=== PATIENT | male | born 1950 | race Asian ===

== ENCOUNTER 2017-05-04 20:41 | Inpatient (IN) | payer BC, OTHER ==
[~2017-05-04] VITALS: Ht 172.7 cm; Wt 73.9 kg
[~2017-05-04 20:41] MED LIST: AMLO5TAB4 PO; ASPI-495 PO; ATEN50TA PO; LISI40TA4 PO; SIMV20TA6 PO
--- NOTE | 2017-05-04 20:52 | NUR ---
BB SELF; RIGHT SHOULDER PAIN X 3 DAYS AFTER CARRYING A BAG OF GROCERIES. DISTAL CMS INTACT. PAIN IS WORSE WITH MOVEMENT. IMMOBILIZED AREA. VSS. NONDIAPHORETIC. NAD NOTED. COMFORT MEASURES RENDERED. DR NAPOLES AT BEDSIDE TO CODY. Addendum: 05/04/17 at 2102 by JUDITH SHOULDER PAIN THAT STARTED X4-5 WEEKS AGO, HOWEVER 2-3 HOURS DOCUMENT IMAGING SPECIALIST, PATIENT FELT INCREASED PAIN AFTER "TWISTING MY ARM WHILE TRYING TO CATCH MY CREDIT CARD FROM FALLING TO THE GROUND."
--- NOTE | 2017-05-04 20:55 | NUR ---
XR TECH AT BEDSIDE.
--- NOTE | 2017-05-04 20:57 | NUR ---
MEDICATED PATIENT ORDERED BY DR NAPOLES.
--- NOTE | 2017-05-04 21:50 | NUR ---
CALLED [facility] [phone]
--- NOTE | 2017-05-04 21:55 | NUR ---
PER [place] BISQUE CLEANER, PT NO LONGER HAS [place] ELIGIBILITY
[2017-05-04 22:10] LABS: HEMATOCRIT 30 % (39-51); HEMOGLOBIN 10.2 g/dL (13.5-17.5); LYMPHOCYTES # (AUTO) 0.4 /CMM (0.8-4.8); LYMPHOCYTES % (AUTO) 6.2 % (20.0-44.0); MEAN CORPUSCULAR HEMOGLOBIN 31 PG (26.0-33.0); MEAN CORPUSCULAR HGB CONC 34 g/dl (31.0-36.0); MEAN CORPUSCULAR VOLUME 93 fL (80-96); MONOCYTES # (AUTO) 0.2 /CMM (0.1-1.30); MONOCYTES % (AUTO) 3.7 % (2.0-12.0); NEUTROPHILS # (AUTO) 5.6 /CMM (1.8-8.9); NEUTROPHILS % (AUTO) 90.1 % (43.0-81.0); PLATELET COUNT (AUTO) 163 /CMM (150-450); RDW COEFFICIENT OF VARIATION 13.7 (11.5-15.0); RED BLOOD CELL COUNT(AUTO) 3.25 MIL/uL (4.5-6.0); WHITE BLOOD COUNT (AUTO) 6.2 K/uL (4.3-11.0)
[2017-05-04 22:17] LABS: CALCIUM, SERUM 9.2 mg/dL (8.5-10.1); CREATININE 0.9 mg/dL (0.6-1.3); POTASSIUM 4.4 mmol/L (3.5-5.1)
[2017-05-04 22:24] LABS: BILIRUBIN,TOTAL 0.5 mg/dL (0.2-1.0)
[2017-05-04 22:25] LABS: ALBUMIN 4.3 g/dL (3.4-5.0); BILIRUBIN,DIRECT 0.5 mg/dL (0.0-0.2); TOTAL PROTEIN, SERUM 7.3 g/dL (6.4-8.2)
[2017-05-04 22:27] LABS: INR 0.91 (0.87-1.13); PROTHROMBIN TIME 9.7 SECS (9.5-12.7)
--- NOTE | 2017-05-04 22:40 | NUR ---
REPORT GIVEN TO MAGO CHINO FOR ADMISSION AND KALIN.
--- NOTE | 2017-05-04 23:13 | NUR ---
DR JJ NIELSEN AT BEDSIDE TO EVAL.
--- NOTE | 2017-05-04 23:43 | NUR ---
PATIENT UNABLE TO PROVIDE URINE AT THIS TIME. TRANSFERRED PATIENT TO [facility] FLOOR, NO INCIDENT NOTED. VSS. FAMILY AT BEDSIDE.
[2017-05-05] VITALS (7 sets, daily range): BP systolic 112–147; BP diastolic 65–82
--- NOTE | 2017-05-05 02:22 | NUR ---
RN MS ADMITTING NOTES RECEIVED PT VIA TIMOTEO FROM [place] AT 05/04/17 4205 ACLS PROTOCOL, A/O X 4, PATIENT NOT IN RESPIRATORY/ ACUTE DISTRESS, PATIENT NO COMPLAINS OF PAIN AT THIS TIME. LFA G 20 IV SITE INTACT NO S/S OF INFILTRATION. R SHOULDER SLING INTACT, PATIENT HAS CPAP ORDERED, RT WAS NOTIFIED. HEAD TO TOE ASSESSMENT IS DONE SKIN IS INTACT. CALL LIGHT WITHIN REACH. SAFETY MEASURES IN PLACE, ON LOW BED, WILL CONTINUE TO MONITOR PT.
[2017-05-05 05:02] LABS: APPEARANCE,URINE CLOUDY (CLEAR); BILIRUBIN,URINE NEGATIVE (NEGATIVE); BLOOD, URINE 1+ Ery/uL (NEGATIVE); COLOR,URINE YELLOW (YELLOW); KETONES,URINE NEGATIVE (NEGATIVE); LEUKOCYTE ESTERASE ,URINE NEGATIVE (NEGATIVE); NITRITE, URINE NEGATIVE (NEGATIVE); PROTEIN,URINE 2+ mg/dl (NEGATIVE); UGLUCOSE NEGATIVE (NEGATIVE); UROBILINOGEN,URINE 0.2 EU/dL (0.2)
[2017-05-05 05:15] LABS: BACTERIA,URINE None seen /HPF (None Seen); SQUAMOUS EPITHELIAL CELL,UR Rare /HPF (None Seen); WBC,URINE 0-2 /HPF (0-3)
[2017-05-05 05:16] LABS: URINE AMORPHOUS URATE Moderate /HPF (None Seen)
--- NOTE | 2017-05-05 06:34 | NUR ---
MS RN CLOSING NOTES PATIENT COMFORTABLY ASLEEP AND EASILY AWAKEN, HEAD OF BED ELEVATED FOR BETTER LUNG EXPANSION AND GOOD CIRCULATION. TOLERATING ROOM AIR 02 SAT 98% PATIENT REMOVE CPAP. CPAP AT [facility] ONLY. LFA 20G IV SITE NO S/S OF INFILTRATED PATENT AND FLUSHED, RESPIRATIONS EVEN AND UNLABORED, FREQUENT VISUAL CHECK DONE FOR SAFETY EVERY 2 HOURS. NURSING CARE RENDERED, NEEDS ATTENDED AND ANTICIPATED, KEPT CLEAN AND DRY AND COMFORTABLE, GOOD SKIN CARE PROVIDED. OFFLOAD AT ALL TIMES. SAFE HAZARD FREE ENVIRONMENT PROVIDED. CALL LIGHT WITHIN EASY TO REACH, ON LOW BED AT ALL TIMES TO ENSURE SAFETY, WILL ENDORSE TO THE NEXT SHIFT CONTINUE PLAN OF CARE
[2017-05-05 07:01] LABS: BASOPHILS % (AUTO) 0.2 % (0.0-2.0); HEMATOCRIT 27 % (39-51); HEMOGLOBIN 9.4 g/dL (13.5-17.5); LYMPHOCYTES # (AUTO) 0.6 /CMM (0.8-4.8); LYMPHOCYTES % (AUTO) 8.5 % (20.0-44.0); MEAN CORPUSCULAR HEMOGLOBIN 32 PG (26.0-33.0); MEAN CORPUSCULAR HGB CONC 34 g/dl (31.0-36.0); MEAN CORPUSCULAR VOLUME 93 fL (80-96); MONOCYTES # (AUTO) 0.7 /CMM (0.1-1.30); MONOCYTES % (AUTO) 9.3 % (2.0-12.0); NEUTROPHILS # (AUTO) 6.1 /CMM (1.8-8.9); PLATELET COUNT (AUTO) 147 /CMM (150-450); RDW COEFFICIENT OF VARIATION 13.2 (11.5-15.0); RED BLOOD CELL COUNT(AUTO) 2.94 MIL/uL (4.5-6.0); WHITE BLOOD COUNT (AUTO) 7.4 K/uL (4.3-11.0)
--- NOTE | 2017-05-05 07:10 | NUR ---
MS RN OPENING NOTE RECEIVED REPORT ON PATIENT AT THE BEDSIDE. PATIENT IS SLEEPING IN BED COMFORTABLY. CHEST IS RISING EQUALLY, BILATERALLY. CPAP IN PLACE. NO OBSERVABLE SIGNS OF DISTRESS. PATIENT'S BED IS LOCKED, IN THE LOWEST POSITION, SIDE RAILS UP X 2, BED ALARM ON. CALL LIGHT/ALL NEEDS WITHIN REACH. WILL RETURN TO REASSESS AFTER MORNING REPORT.
[2017-05-05 07:33] LABS: CALCIUM, SERUM 8.8 mg/dL (8.5-10.1); CREATININE 0.8 mg/dL (0.6-1.3); PHOSPHORUS 4.9 mg/dL (2.5-4.9); POTASSIUM 4.6 mmol/L (3.5-5.1)
[2017-05-05 07:37] LABS: FREE PSA 0.09 ng/mL (0.00-45); PROSTATE SPECIFIC ANTIGEN SCR 0.5 ng/mL (0.00-4.00)
--- NOTE | 2017-05-05 08:46 | NUR ---
MS RN NOTE PATIENT REFUSED TAKING SIMVASTATIN AT THIS TIME. STATED HE TAKES IT AT NIGHT AT HOME.
--- NOTE | 2017-05-05 09:01 | NUR ---
MS RN NOTES RECEIVED CALL FROM COURY FROM [facility]. PER COURY ORDER NPO MIDNIGHT FOR PATIENT AND OBTAIN PROCEDURE CONSENT FOR ORIF RIGHT FX FEMORAL. MD MCADAMS AWARE OF LOW K, PHOS, AND MAG; NO NEW ORDERS FROM DR MCADAMS AT THIS TIME.
[2017-05-05 09:41] LABS: THYROID STIMULATING HORMONE 1.769 uIU/mL (0.358-3.74)
--- NOTE | 2017-05-05 10:10 | NUR ---
ORANGE PEEL OPERATOR NOTE PATIENT STATED HE COULD NOT SIGH THE CONSENT FOR NUCLEAR MEDICINE BONE SCAN. GRANDDAUGHTER SIGNED AT THE BEDSIDE AT PATIENT'S REQUEST.
--- NOTE | 2017-05-05 12:25 | NUR ---
MS RN STUART YOUNG FROM NUCLEAR MEDICINE IS WHEELING THE PATIENT DOWN FOR THE THE TEST. PATIENT IS LEAVING THE UNIT IN A STABLE CONDITION.
--- NOTE | 2017-05-05 16:41 | NUR ---
MS RN NOTE OT AT THE BEDSIDE FOR EVAL
--- NOTE | 2017-05-05 19:00 | NUR ---
RN MS NOTES RECEIVED PT IN BED, A/O X 4, PATIENT NOT IN ACUTE/RESPIRATORY DISTRESS, IV SITE INTACT NO S/S OF INFILTRATION. CALL LIGHT WITHIN REACH. SAFETY MEASURES IN PLACE, ON LOW BED, WILL CONTINUE TO MONITOR PT.
--- NOTE | 2017-05-05 19:34 | NUR ---
MS RN CLOSING NOTE PATIENT IS RESTING IN THE BED COMFORTABLY. FAMILY AT THE BEDSIDE. BED IS LOCKED, IN LOWEST POSITION, SIDE RAILS UP X 2, ALL NEEDS ATTENDED. DUE MEDS GIVEN. WILL ENDORSE TO THE NEXT SHIFT FOR KALIN
[2017-05-06] VITALS (24 sets, daily range): BP systolic 90–124; BP diastolic 58–80
[2017-05-06 06:32] LABS: BASOPHILS % (AUTO) 0.3 % (0.0-2.0); EOSINOPHILS % (AUTO) 0.2 % (0.0-6.0); HEMATOCRIT 28 % (39-51); HEMOGLOBIN 9.6 g/dL (13.5-17.5); LYMPHOCYTES # (AUTO) 0.9 /CMM (0.8-4.8); LYMPHOCYTES % (AUTO) 15.4 % (20.0-44.0); MEAN CORPUSCULAR HEMOGLOBIN 32 PG (26.0-33.0); MEAN CORPUSCULAR HGB CONC 34 g/dl (31.0-36.0); MEAN CORPUSCULAR VOLUME 92 fL (80-96); MONOCYTES # (AUTO) 0.5 /CMM (0.1-1.30); MONOCYTES % (AUTO) 9.1 % (2.0-12.0); NEUTROPHILS # (AUTO) 4.4 /CMM (1.8-8.9); PLATELET COUNT (AUTO) 134 /CMM (150-450); RDW COEFFICIENT OF VARIATION 13.5 (11.5-15.0); RED BLOOD CELL COUNT(AUTO) 3.02 MIL/uL (4.5-6.0); WHITE BLOOD COUNT (AUTO) 5.8 K/uL (4.3-11.0)
--- NOTE | 2017-05-06 06:47 | NUR ---
MS RN CLOSING NOTES PATIENT TRANSPORTED TO [facility] AT 0633 AM PT FULLY AWAKE AND NOT IN ACUTE/RESPIRATORY DISTRESS, FAMILY AT BEDSIDE, REMOVED CPAP. WITH GOOD 02 LEVELS 99% R.A RESPIRATIONS EVEN AND UNLABORED, FREQUENT VISUAL CHECK WAS DONE FOR SAFETY EVERY 2 HOURS. NURSING CARE RENDERED, NEEDS ATTENDED AND ANTICIPATED, PT WAS KEPT CLEAN AND DRY AND COMFORTABLE, GOOD SKIN CARE PROVIDED. OFFLOADED AT ALL TIMES. SAFE HAZARD FREE ENVIRONMENT PROVIDED. WILL ENDORSE TO THE NEXT SHIFT CONTINUE PLAN OF CARE
[2017-05-06 07:02] LABS: ALBUMIN 3.6 g/dL (3.4-5.0); BILIRUBIN,TOTAL 0.7 mg/dL (0.2-1.0); CALCIUM, SERUM 8.2 mg/dL (8.5-10.1); CREATININE 0.9 mg/dL (0.6-1.3); MAGNESIUM 1.7 mg/dL (1.8-2.4); PHOSPHORUS 2.9 mg/dL (2.5-4.9); POTASSIUM 4.1 mmol/L (3.5-5.1); TOTAL PROTEIN, SERUM 6.2 g/dL (6.4-8.2)
[2017-05-06 07:08] LABS: THYROID STIMULATING HORMONE 2.179 uIU/mL (0.358-3.74)
--- NOTE | 2017-05-06 07:45 | NUR ---
COUTURIERE; ADMIT RECEIVED PT FROM OR. PT WAS SCHEDULED FOR RIGHT HUMERUS FX REPAIR. PT UNABLE TO HAVE SURGERY DUE TO PTS SPIKE IN FEVER. PT IS AWAKE BUT LETHARGIC, HOT TO TOUCH. TEMP TAKEN 102.2, COOLING MEASURES APPLIED WILL REVIEW ORDERS. DU CATH PLACED USING ASEPTIC TECHNIQUE. URINE CULTURE SEND. ACEVEDO CULTURES ORDERED. ORIENTED PT TO ROOM CALL LIGHT WITH IN REACH. BED SET TO LOW POSITION
--- NOTE | 2017-05-06 09:28 | NUR ---
MADE AWARE PT. TO GO FROM OR TO ICU-BELONGINGS PACKED UP AND SENT.
--- NOTE | 2017-05-06 10:30 | NUR ---
DEPARTMENT CLINICIAN; CARDIO NOTED PT HEART RATE CHANGE FROM SINUS TACHY TO AFIB. DR. GANDHI MADE AWARE. EKG DONE SHOWING AFIB. NO NEW ORDERS GIVEN. TO CONTINUE TO MONITOR HEART RATE AND IF IT BECOMES UNCONTROLLED TO NOTIFY HIM. WILL CONTINUE TO MONITOR CLOSELY.
--- NOTE | 2017-05-06 19:30 | NUR ---
ANATOMY AND PHYSIOLOGY INSTRUCTOR INITIAL NOTE RECEIVED REPORT FROM ORLANDO CHINO. PT IN BED SLEEPING BUT EASILY AROUSABLE. ON 2L NC. LUNG SOUNDS CLEAR AT UPPER BASES AND DIMINISHED AT LOWER BASES. BOWEL SOUNDS PRESENT. DU INTACT AND DRAINING YELLOW URINE, CURRENTLY COLLECTING A 24HR SPECIMEN- ON ICE. PULSES PRESENT. PT IS WARM TO TOUCH WITH AT ORAL TEMP AT 97.6 BUT AXILLARY TEMP 100.2. ICE PACKS APPLIED FOR FEVER. RIGHT ARM WARMER THAN LEFT, DR NIELSEN AWARE. BED IN LOW LOCKED POSITION. WILL CONTINUE TO MONITOR.
--- NOTE | 2017-05-06 21:00 | NUR ---
FRONT OFFICE DEVELOPER PT TEMP REMAINS ELEVATED AT 101.[address] NIELSEN AT BEDSIDE, PATIENT NOT BREATHING WELL WITH CPAP, ORDERS RECEIVED TO START ON BIPAP. TYLENOL ADMINISTERED. ORDERS RECEIVED TO START ABX AND RAPID INFLUENZA. WILL CARRY OUT ORDERS. WILL CONTINUE TO MONITOR.
--- NOTE | 2017-05-06 22:00 | NUR ---
GASOLINE PUMP MECHANIC TEMP RE CHECKED FROM TEMPORAL ARTERY 99.3. WILL CONTINUE TO MONITOR
[2017-05-07] VITALS (29 sets, daily range): BP systolic 96–156; BP diastolic 56–85
--- NOTE | 2017-05-07 01:35 | NUR ---
DAY CARE PROVIDER PT HR CONVERTED FROM UNCONTROLLED AFIB 115 TO SR HR 83
[2017-05-07 05:08] LABS: BASOPHILS % (AUTO) 0.3 % (0.0-2.0); EOSINOPHILS % (AUTO) 0.1 % (0.0-6.0); HEMATOCRIT 29 % (39-51); HEMOGLOBIN 9.9 g/dL (13.5-17.5); LYMPHOCYTES # (AUTO) 0.7 /CMM (0.8-4.8); LYMPHOCYTES % (AUTO) 12.2 % (20.0-44.0); MEAN CORPUSCULAR HEMOGLOBIN 32 PG (26.0-33.0); MEAN CORPUSCULAR HGB CONC 34 g/dl (31.0-36.0); MEAN CORPUSCULAR VOLUME 94 fL (80-96); MONOCYTES # (AUTO) 0.6 /CMM (0.1-1.30); MONOCYTES % (AUTO) 9.4 % (2.0-12.0); NEUTROPHILS # (AUTO) 4.6 /CMM (1.8-8.9); PLATELET COUNT (AUTO) 129 /CMM (150-450); RDW COEFFICIENT OF VARIATION 13.3 (11.5-15.0); RED BLOOD CELL COUNT(AUTO) 3.11 MIL/uL (4.5-6.0); WHITE BLOOD COUNT (AUTO) 5.9 K/uL (4.3-11.0)
[2017-05-07 05:26] LABS: CALCIUM, SERUM 8.2 mg/dL (8.5-10.1); CREATININE 0.8 mg/dL (0.6-1.3); MAGNESIUM 2.2 mg/dL (1.8-2.4); POTASSIUM 3.9 mmol/L (3.5-5.1)
[2017-05-07 08:07] LABS: IMMUNOGLOBULIN A, SERUM 16 mg/dL (61-437); IMMUNOGLOBULIN G, SERUM 396 mg/dL (700-1600); IMMUNOGLOBULIN M, SERUM 12 mg/dL (20-172)
--- NOTE | 2017-05-07 08:33 | NUR ---
RT PATIENT REMOVED FROM BIPAP AND PLACED ON 3L N/C. RN ORLANDO NOTIFIED
--- NOTE | 2017-05-07 09:00 | NUR ---
CHIEF RECORDIST; Resp noted pt having apneic episodes and saturations decreasing to to mid 80's. pt need constant stimulation to keep awake. Jodee Bella RT made aware and place pt back on bipap settings.
--- NOTE | 2017-05-07 10:00 | NUR ---
SWEEPER BRUSH MAKER MACHINE: MEDICATION Unable to give 0900 scheduled medication due to pt too lethargic and high risk for aspiration. pt continues on bipap. will continue to monitor B/P. and alertness.
--- NOTE | 2017-05-07 10:10 | NUR ---
RT ABG RESULTS DID NOT TRANSFER OVER TO [facility]. DOWNTIME PROCEDURE DONE. PH: 7.36, CO2: 41.5, PO2: 131.8, HCO3: 23.2
--- NOTE | 2017-05-07 10:26 | NUR ---
PLANE TABLEMAN; TEMP noted pt warm to touch. pt continues to be lethargic but arousable. temp taken reading 102. Cooling measures applied. dr. moon notified. discussed that pt coninutes on bipap abg results given. Orders given for blood cultures and to keep pt in ICU.
--- NOTE | 2017-05-07 14:30 | NUR ---
MULTIPLE D/W DR AMIN, RADIOLOGIST, AND GRANDSON AND JULIO NIELSEN REGARDING DIAGNOSTIC LP. PT JUST NOW OFF OF BIPAP AND LAST BABY ASA YESTERDAY AM. WILL GET CT SCAN OF HEAD. FAMILY AGREES TO LP. JULIO NIELSEN WILL DO LP THIS PM. WILL TRANSFER TO NEGATIVE FLOW ROOM AND INSTRUCT FAMILY IN ISOLATION N 95. ID CONSULT TO BROADEN ANTIBIOTICS TO COVER POSSIBLE MENINGITIS
--- NOTE | 2017-05-07 18:10 | NUR ---
BUSINESS EDITOR: HYGIENE PT Refuses for bed bath, or to change bed sheets. pt states that its too painful. Gave pt option that i could give him his prn medication and then do care. pt continues to deny pain medication and hygiene care.
--- NOTE | 2017-05-07 19:50 | NUR ---
DENTURE PROCESSOR. INITIAL ASSESSMENT. RECEIVED THE PT REST ON THE BED. AWAKE, ALERT. FOLLOW COMMANDS. SEARCH OPTIMIZATION ANALYST SHOWING NSR. OXYGEN 3L VIA NASAL CANNULA. SAT 98%. NO ACUTE DISTRESS NOTED. IV LT UPPER ARM MID LINE. IVF NS 100ML/H. HOB ELEVATED. TURN AND REPOSITION Q2H. FC PATENT. TURN AND REPOSITION Q2H. WILL CONTINUE TO MONITOR VITALS.
[2017-05-08] VITALS (26 sets, daily range): BP systolic 107–165; BP diastolic 65–93
[2017-05-08 04:58] LABS: BASOPHILS % (AUTO) 0.5 % (0.0-2.0); EOSINOPHILS # (AUTO) 0.1 /CMM (0.0-0.7); EOSINOPHILS % (AUTO) 1.2 % (0.0-6.0); HEMATOCRIT 27 % (39-51); HEMOGLOBIN 9.4 g/dL (13.5-17.5); LYMPHOCYTES # (AUTO) 0.6 /CMM (0.8-4.8); LYMPHOCYTES % (AUTO) 13.4 % (20.0-44.0); MEAN CORPUSCULAR HEMOGLOBIN 32 PG (26.0-33.0); MEAN CORPUSCULAR HGB CONC 35 g/dl (31.0-36.0); MEAN CORPUSCULAR VOLUME 92 fL (80-96); MONOCYTES # (AUTO) 0.4 /CMM (0.1-1.30); MONOCYTES % (AUTO) 9.5 % (2.0-12.0); NEUTROPHILS # (AUTO) 3.4 /CMM (1.8-8.9); NEUTROPHILS % (AUTO) 75.4 % (43.0-81.0); PLATELET COUNT (AUTO) 125 /CMM (150-450); RDW COEFFICIENT OF VARIATION 13.1 (11.5-15.0); RED BLOOD CELL COUNT(AUTO) 2.91 MIL/uL (4.5-6.0); WHITE BLOOD COUNT (AUTO) 4.5 K/uL (4.3-11.0)
[2017-05-08 05:18] LABS: CALCIUM, SERUM 8.4 mg/dL (8.5-10.1); CREATININE 0.7 mg/dL (0.6-1.3); POTASSIUM 4.2 mmol/L (3.5-5.1)
--- NOTE | 2017-05-08 05:39 | NUR ---
RIDER TICKET WORKER. AM CARE. ORAL CARE, BED BATH GIVEN. LINEN CHANGED. ORAL CARE GIVEN. DURING NIGHT BIPAP ON. PT IS AFEBRILE. HPB ELEVATED. LT HAND MID LINE. IVF NS 100ML/H. FC PATENT. WILL CONTINUE TO MONITOR VITALS.
--- NOTE | 2017-05-08 10:10 | NUR ---
OPTICAL INSTRUMENT ASSEMBLER; CARDIO NOTED PT HEART RATE ELEVATED TO 147, WITH WHAT APPEARS TO BE AFLUTTER. DR. SOSA AT BEDSIDE. NO NEW ORDERS GIVEN. TO KEEP MONITORING AND IF PT DOES NOT CONVERT BACK TO NOTIFY HIM. PT WAS ASYMPTOMATIC. IRREGULAR RHYTHM LASTED FOR APRROX. 2MIN. CURRENTLY PT BACK TO SINUS RHYTHM 70'S. WILL CONTINUE TO MONITOR CLOSELY.
[2017-05-09] VITALS (18 sets, daily range): BP systolic 108–166; BP diastolic 51–73
[2017-05-09] LABS: CSF GLUCOSE 75 mg/dL (40-70); CSF PROTEIN 29.9 mg/dL (15-45)
--- NOTE | 2017-05-09 00:05 | NUR ---
RT NOTE PT PLACED ON BIPAP PER PATIENT REQUEST. SETTINGS PRESCRIBED. ALARMS SET PER PROTOCOL AND AUDIBLE. BIPAP PLUGGED IN TO RED OUTLET. AMBU BAG AT BED SIDE. PATIENT DAUGHTER AT BED SIDE. PT AWAKE AND ALERT, APPEARS COMFORTABLE. NO DISTRESS NOTED WILL CONTINUE TO MONITOR. Addendum: 05/09/17 at 0012 by SOFÍA HAYS RT Amended: Links added.
--- NOTE | 2017-05-09 01:00 | NUR ---
FUR BLOWER - PT. HAS GRAND-DAUGHTER AT BS. PT'S RT.SHOULDER IS IN SLING. PT. HAS REC'D NORCO-2TABS AT START OF SHIFT & 05:30AM. DR. JJ NIELSEN PERFORMED LP AT 23:00. SUCCESSFUL. 4 VIALS OF CSF WAS SENT TO LAB-"STAT". MORPHINE SULFATE 4MG IVP WAS ADM. TO PT. PRIOR TO LP FOR COMFORT. DU CATH TO GRAVITY W/GOOD UOP. HEART MONITOR SHOWS SBP'S AT LOW 100'S TO 130'S & HR/70-80'S/SR. AFEBRILE. PT. REMAINS IN ISOLATION PER ID MD. PT.IS A&OX 4/BIPAP WAS PLACED ON PT. AROUND MN. & TAKEN OFF AT 6AM. PT.IS NOW ON O2/3L/NC. CONT. POC./
[2017-05-09 04:59] LABS: BASOPHILS % (AUTO) 0.4 % (0.0-2.0); EOSINOPHILS # (AUTO) 0.1 /CMM (0.0-0.7); EOSINOPHILS % (AUTO) 1.6 % (0.0-6.0); HEMATOCRIT 24 % (39-51); HEMOGLOBIN 8.4 g/dL (13.5-17.5); LYMPHOCYTES # (AUTO) 0.6 /CMM (0.8-4.8); MEAN CORPUSCULAR HEMOGLOBIN 32 PG (26.0-33.0); MEAN CORPUSCULAR HGB CONC 35 g/dl (31.0-36.0); MEAN CORPUSCULAR VOLUME 93 fL (80-96); MONOCYTES # (AUTO) 0.3 /CMM (0.1-1.30); MONOCYTES % (AUTO) 9.9 % (2.0-12.0); NEUTROPHILS # (AUTO) 2.5 /CMM (1.8-8.9); NEUTROPHILS % (AUTO) 72.1 % (43.0-81.0); PLATELET COUNT (AUTO) 130 /CMM (150-450); RDW COEFFICIENT OF VARIATION 12.8 (11.5-15.0); WHITE BLOOD COUNT (AUTO) 3.5 K/uL (4.3-11.0)
[2017-05-09 05:05] LABS: CALCIUM, SERUM 8.1 mg/dL (8.5-10.1); CREATININE 0.7 mg/dL (0.6-1.3); POTASSIUM 3.6 mmol/L (3.5-5.1)
[2017-05-09 07:09] LABS: *SPE A/G RATIO 1.6 (0.7-1.7); *SPE ALBUMIN 3.7 g/dL (2.9-4.4); *SPE ALPHA-1-GLOBULIN 0.3 g/dL (0.0-0.4); *SPE ALPHA-2-GLOBULIN 0.5 g/dL (0.4-1.0); *SPE GLOBULIN, TOTAL 2.3 g/dL (2.2-3.9); *SPE M-SPIKE Not Observed g/dL (Not Observed); *SPEGAMMA GLOBULIN 0.4 g/dL (0.4-1.8)
--- NOTE | 2017-05-09 09:45 | NUR ---
ICU/RN - Notes Pt medicated with [place] for complaints of right shoulder pain 9 out of 10. Comfort measures rendered. Will reassess pain accordingly.
--- NOTE | 2017-05-09 11:45 | NUR ---
ICU/RN - Transfer Pt cleared by Jarad Franklin NP for SAMUEL status. Pt transferred to SAMUEL 108-1 per ACLS protocol. Report given to Ella CHINO for continuity of care.
--- NOTE | 2017-05-09 12:12 | NUR ---
SAMUEL RN NOTE RECEIVED PATIENT FROM ICU ALERT , ORIENTED, AT BEDSIDE. RT ARM WITH SLING , NO C\O PAIN AT THIS TIME, ALL NEEDS ATTENDED,UNIT ORIENTATION DONE, BED IN LOWEST AND LOCKED POSITION , PLACED ON TELE SR 82, NO SOB NOTED,LT UPPER ARM MIDLINE PATENT ,NO S\INFECTION NOTED , WITH DU CATCH TO GRAVITY WITH YELLOW COLOR URINE , BED IN LOWEST AND LOCKED POSITION , CALL LIGHT WITHIN REACH ON IVF ORDERED, WILL CONT TO MONITOR CLOSELY
--- NOTE | 2017-05-09 16:53 | NUR ---
SAMUEL RN NOTE ALL NEEDS ATTENDED ,ON IVF ORDERED AT BEDSIDE ,WILL CONT TO MONITOR CLOSELY
--- NOTE | 2017-05-09 18:25 | NUR ---
SAMUEL RN NOTE AT BEDSIDE , HAVING DINNER ,NOT IN ACUTE DISTRESS , WILL CONT TO MONITOR CLOSELY
--- NOTE | 2017-05-09 19:40 | NUR ---
SAMUEL RN NOTE RECEIVED PT IN BED A/O X 4, NO SOB, NO DISTRESS OR DISCOMFORT NOTED. DENIES PAIN AT THIS TIME. STATES "DON'T TOUCH MY RT ARM AND I CAN'T MOVE IT ONLY THEN I HAVE PAIN OTHERWISE I AM OK". HOB ELEVATED FOR PT COMFORT. IVF NS @ 100 ML/HR INFUSING WELL, NO S/S OF INFILTRATION NOTED RANDELL MIDLINE, NO S/S OF INFILTRATION NOTED. F/C INTACT AND PATENT DRAINING YELLOWISH COLOR URINE. ON TELE SR HR 87. SIDE RAILS UP X 2 AND CALL LIGHT WITHIN REACH. VSS. AT BED SIDE. CONTINUE TO MONITOR HIM.
[2017-05-10] VITALS: BP 144/63
[2017-05-10 04:00] VITALS: BP 169/73
[2017-05-10 06:27] LABS: BASOPHILS % (AUTO) 0.5 % (0.0-2.0); EOSINOPHILS # (AUTO) 0.1 /CMM (0.0-0.7); HEMATOCRIT 24 % (39-51); HEMOGLOBIN 8.1 g/dL (13.5-17.5); LYMPHOCYTES # (AUTO) 0.5 /CMM (0.8-4.8); LYMPHOCYTES % (AUTO) 12.1 % (20.0-44.0); MEAN CORPUSCULAR HEMOGLOBIN 32 PG (26.0-33.0); MEAN CORPUSCULAR HGB CONC 35 g/dl (31.0-36.0); MEAN CORPUSCULAR VOLUME 93 fL (80-96); MONOCYTES # (AUTO) 0.3 /CMM (0.1-1.30); MONOCYTES % (AUTO) 8.3 % (2.0-12.0); NEUTROPHILS # (AUTO) 2.9 /CMM (1.8-8.9); NEUTROPHILS % (AUTO) 76.1 % (43.0-81.0); PLATELET COUNT (AUTO) 134 /CMM (150-450); RDW COEFFICIENT OF VARIATION 13.1 (11.5-15.0); RED BLOOD CELL COUNT(AUTO) 2.52 MIL/uL (4.5-6.0); WHITE BLOOD COUNT (AUTO) 3.9 K/uL (4.3-11.0)
[2017-05-10 06:40] LABS: CALCIUM, SERUM 8.3 mg/dL (8.5-10.1); CREATININE 0.7 mg/dL (0.6-1.3); POTASSIUM 3.7 mmol/L (3.5-5.1)
--- NOTE | 2017-05-10 07:10 | NUR ---
SAMUEL RN NOTE PT IN BED ASLEEP, NO DISTRESS OR DISCOMFORT NOTED. DENIES PAIN AT THIS TIME. IVF INFUSING WELL, NO S/S OF INFILTRATION NOTED. ON TELE SR 87. SLING ON RT ARM ON. NO BM. SIDE RAILS UP X 2 AND CALL LIGHT WITHIN REACH. ENDORSE TO DAY SHIFT NURSE FOR CONTINUE TO CARE.
[2017-05-10 08:00] VITALS: BP 152/64
--- NOTE | 2017-05-10 09:30 | NUR ---
PT ASSISTED WITH AM HYGIENE AND NUTRITION. MEDICATED SCHEDULED. PT REPOSITIONED FOR COMFORT. RUE IN SLING, MILD EDEMA NOTED, + PULSE, BUT DIFFICULT TO PULPATE DUE TO PT ADMITS TO PAIN 04/13. RUE REPOSITIONED AND ELEVATED FOR COMFORT. MEDICATED WITH NORCO.
[2017-05-10 16:00] VITALS: BP 155/65
--- NOTE | 2017-05-10 19:30 | NUR ---
MS RN INITIAL NOTE PT RECEIVED IN BED WITH DAUGHTER AT BEDSIDE. A/O X4 AND ABLE TO MAKE NEEDS KNOWN. ON 2L OF O2 VIA NC AND SATURATING WELL. BREATHING EVEN AND UNLABORED. IV RANDELL MIDLINE CLEAN, DRY, PATENT AND FLUSHING WELL. DU CATHETER IN PLACE AND DRAINING BY GRAVITY. ISOLATION PRECAUTIONS OBSERVED. ULTRA SOUND BEING PERFORMED AT BEDSIDE NOW. INFORMED PT THAT AFTER ULTRASOUND WILL NO LONGER BE NPO. PT VERBALIZED UNDERSTANDING. CALL LIGHT WITHIN REACH AT ALL TIMES. WILL CONTINUE TO MONITOR.
[2017-05-10 20:00] VITALS: BP 161/73
[2017-05-11 04:00] VITALS: BP 168/69
[2017-05-11 07:06] LABS: BASOPHILS % (AUTO) 0.3 % (0.0-2.0); EOSINOPHILS # (AUTO) 0.1 /CMM (0.0-0.7); HEMATOCRIT 24 % (39-51); HEMOGLOBIN 8.1 g/dL (13.5-17.5); LYMPHOCYTES # (AUTO) 0.5 /CMM (0.8-4.8); LYMPHOCYTES % (AUTO) 10.5 % (20.0-44.0); MEAN CORPUSCULAR HEMOGLOBIN 32 PG (26.0-33.0); MEAN CORPUSCULAR HGB CONC 34 g/dl (31.0-36.0); MEAN CORPUSCULAR VOLUME 93 fL (80-96); MONOCYTES # (AUTO) 0.4 /CMM (0.1-1.30); MONOCYTES % (AUTO) 9.3 % (2.0-12.0); NEUTROPHILS # (AUTO) 3.5 /CMM (1.8-8.9); NEUTROPHILS % (AUTO) 77.9 % (43.0-81.0); PLATELET COUNT (AUTO) 147 /CMM (150-450); RDW COEFFICIENT OF VARIATION 13.2 (11.5-15.0); RED BLOOD CELL COUNT(AUTO) 2.57 MIL/uL (4.5-6.0); WHITE BLOOD COUNT (AUTO) 4.5 K/uL (4.3-11.0)
[2017-05-11 07:10] LABS: *IFEU ALPHA-2-GLOBULIN 2.5 % (.); *IFEU BETA GLOBULIN 8.3 % (.); *IFEU GAMMA GLOBULIN 81.1 % (.); *IFEU M-SPIKE 77.6 % (Not Observed); *PEU PROTEIN,TOTAL 784.5 mg/dL (Not Estab.)
--- NOTE | 2017-05-11 07:27 | NUR ---
MS RN CLOSING NOTE PT REMAINED STABLE DURING SHIFT. ALL NEEDS ATTENDED TO PROMPTLY. NO C/O PAIN NOTE. ISOLATION PRECAUTIONS OBSERVED. ALL DUE MEDS GIVEN ORDERED AND WELL TOLERATED. CALL LIGHT WITHIN REACH AT ALL TIMES. WILL ENDORSE TO NEXT SHIFT FOR KALIN.
[2017-05-11 07:31] LABS: CALCIUM, SERUM 8.6 mg/dL (8.5-10.1); CREATININE 0.7 mg/dL (0.6-1.3)
[2017-05-11 08:00] VITALS: BP 168/63
--- NOTE | 2017-05-11 08:42 | NUR ---
RN NOTE REMOVED BIPAP AT THIS TIME, BREATHING EVEN AND UNLABORED, O2 SAT 100% WITH NC 3L. AT BED SIDE FEEDING PATIENT, NO ASPIRATION HOB ELEVATED 90 DEGREES. 6/10 PAIN AND 100.3 TEMP, ADMIN TYLENOL, PLAN TO MANAGE PAIN TODAY, PT. VERBALIZED UNDERSTANDING.
[2017-05-11 16:00] VITALS: BP 149/61
--- NOTE | 2017-05-11 17:30 | NUR ---
CONSENT RECEIVED T.O. FROM DAVID BENSON FOR PROCEDURE CONSENT FOR ORIF R HUMERAL NAIL. PATIENT VERBALIZED UNDERSTANDING SIGNED CONSENT FOR BLOOD TRANSFUSION, ANESTHESIA AND SURGERY. NPO POST MIDNIGHT. PATIENT AWARE. GRANDDAUGHTER AND AT BED SIDE.
--- NOTE | 2017-05-11 19:08 | NUR ---
END OF SHIFT HANDED OFF REPORT. PATIENT CURRENTLY IN RADIOLOGY DEPARTMENT.
--- NOTE | 2017-05-11 19:50 | NUR ---
MS RN INITIAL NOTES RECEIVED PATIENT FROM RADIOLOGY WITH BED. GRANDDAUGHTER AT BEDSIDE. PATIENT WITH C/O 7/10 OF RIGHT ARM PAIN. SKIN WARM AND DRY TO TOUCH. DENIES SOB. WITH 3LPMO2 VIA NC. PER REPORT PATIENT FOR PROCEDURE IN AM. INFORMED PATIENT TO BE NPO AFTER MIDNIGHT. PATIENT VERBALIZED UNDERSTANDING. WITH LFA 20G PATENT AND INTACT. WITH F/C PATENT AND INTACT, DRAINING BY GRAVITY, WITH CLEAR , YELLOW OUTPUT. HOB ELEVATED. SIDE RAIL UP AND LOCKED. BED KEPT AT LOWEST POSITION. CALL LIGHT KEPT WITHIN EASY REACH. WILL CONTINUE TO MONITOR.
[2017-05-11 20:00] VITALS: BP 160/69
--- NOTE | 2017-05-11 20:21 | NUR ---
NOTED PATIENT WITH ELEVATED TEMP 100.9 ORAL. COOLING MEASURES INITIATED. WILL CONTINUE TO MONITOR.
[2017-05-11 21:08] VITALS: BP 132/64
--- NOTE | 2017-05-11 22:36 | NUR ---
PT IS AWAKE AND ALERT. PLACED ON NOC BIPAP. RN NOTIFIED. WILL CONTINUE TO MONITOR.
[2017-05-12] VITALS (12 sets, daily range): BP systolic 118–159; BP diastolic 63–81
[2017-05-12 01:21] LABS: APPEARANCE,URINE CLEAR (CLEAR); BILIRUBIN,URINE NEGATIVE (NEGATIVE); BLOOD, URINE 2+ Ery/uL (NEGATIVE); COLOR,URINE YELLOW (YELLOW); KETONES,URINE NEGATIVE (NEGATIVE); LEUKOCYTE ESTERASE ,URINE NEGATIVE (NEGATIVE); NITRITE, URINE NEGATIVE (NEGATIVE); PH,URINE 7.5 (5.0-8.0); PROTEIN,URINE 2+ mg/dl (NEGATIVE); UGLUCOSE NEGATIVE (NEGATIVE); UROBILINOGEN,URINE 0.2 EU/dL (0.2)
[2017-05-12 01:35] LABS: BACTERIA,URINE None seen /HPF (None Seen); SQUAMOUS EPITHELIAL CELL,UR Rare /HPF (None Seen); WBC,URINE 0-2 /HPF (0-3)
[2017-05-12 01:36] LABS: MUCUS,URINE Few /LPF (None Seen)
[2017-05-12 06:38] LABS: INR 0.94 (0.87-1.13)
[2017-05-12 06:49] LABS: BASOPHILS % (AUTO) 0.4 % (0.0-2.0); EOSINOPHILS # (AUTO) 0.1 /CMM (0.0-0.7); EOSINOPHILS % (AUTO) 1.9 % (0.0-6.0); HEMATOCRIT 25 % (39-51); HEMOGLOBIN 8.4 g/dL (13.5-17.5); LYMPHOCYTES # (AUTO) 0.5 /CMM (0.8-4.8); MEAN CORPUSCULAR HEMOGLOBIN 32 PG (26.0-33.0); MEAN CORPUSCULAR HGB CONC 34 g/dl (31.0-36.0); MEAN CORPUSCULAR VOLUME 93 fL (80-96); MONOCYTES # (AUTO) 0.4 /CMM (0.1-1.30); MONOCYTES % (AUTO) 7.7 % (2.0-12.0); NEUTROPHILS # (AUTO) 4.4 /CMM (1.8-8.9); PLATELET COUNT (AUTO) 178 /CMM (150-450); RED BLOOD CELL COUNT(AUTO) 2.63 MIL/uL (4.5-6.0); WHITE BLOOD COUNT (AUTO) 5.4 K/uL (4.3-11.0)
--- NOTE | 2017-05-12 06:50 | NUR ---
MS RN CLOSING NOTES NO SIGNIFICANT CHANGES OVERNIGHT. NO RESPIRATORY DISTRESS NOTED. ON 3LPMO2 VIA NC. SKIN WARM AND DRY TO TOUCH. PAIN MANAGED NEEDED. ALL NEEDS ANTICIPATED AND MET. FOR ORIF TODAY. NPO SINCE MIDNIGHT. F/C PATENT AND INTACT, DRAINING BY GRAVITY. SIDE RAILS UP AND LOCKED. BED KEPT AT LOWEST POSITION. CALL LIGHT KEPT WITHIN EASY REACH. WILL ENDORSE CONTINUITY OF CARE TO AM NURSE.
[2017-05-12 06:55] LABS: CALCIUM, SERUM 8.7 mg/dL (8.5-10.1); CREATININE 0.8 mg/dL (0.6-1.3); MAGNESIUM 2.1 mg/dL (1.8-2.4); POTASSIUM 4.2 mmol/L (3.5-5.1)
--- NOTE | 2017-05-12 08:00 | NUR ---
MS1/RN AM SHIFT INITIAL NOTES RECEIVED PT AWAKE SITTING IN BED, A/O X 3, DENIES PAIN BUT COMPLAINT OF DISCOMFORT. PT ON 3L HUMIDIFIED O2, SATURATING @ 972 LUNG SOUND CLEAR. IV SITE ON TKO, PATENT WITH NO S/S OF INFECTION. DU CATHETER INTACT WITH YELLOW URINE OUTPUT. PT ON NPO STATUS EXCEPT FOR MEDS. PT TO HAVE ORIF SURGERY TODAY. CL WITHIN REACHED AND SAFETY MAINTAINED. ON GOING MONITORING.
--- NOTE | 2017-05-12 10:00 | NUR ---
MS1/RN ROUNDS - DR. LEMON UPDATED PT'S CONDITION. PT SEEN & EXAMINED BY DR. LEMON, WITH VERBAL ORDERS RECEIVED TO PREPARE 2 UNITS OF PRBC ON STANDBY. ORDER NOTED AND CARRIED.
--- NOTE | 2017-05-12 10:35 | NUR ---
MS1/RN NEW ORDER - DR. KIM RECEIVED A PHONE CALL FROM DR. KIM WITH NEW ORDER FOR CY OF THE CHEST, ABDOMEN AND PELVIS WITHOUT CONTRAST. ORDER NOTED AND CARRIED.
--- NOTE | 2017-05-12 10:40 | NUR ---
MS1/RN NEW ORDER - ILIR VALDEZ RECEIVED A CALL FROM ILIR VALDEZ WITH ORDER RECEIVED TO GIVE PT BOLUS OF NS 250ML X 1 THEN NS @ 75CC/HR CONTINUOUSLY. ORDER NOTED AND CARRIED OUT.
--- NOTE | 2017-05-12 11:40 | NUR ---
MS1/RN DVT PROPHYLAXIS DVT PUMP PLACE FOR DVT PROPHYLAXIS, VTE SCORE OF MORE THAN 5. MONITORING CONTINUES.
--- NOTE | 2017-05-12 12:00 | NUR ---
MS1/RN OFF TO RADIOLOGY PT LEFT MS1 UNIT VIA BED IN STABLE CONDITION FOR CT OF CHEST, ABDOMEN AND PELVIS.
[2017-05-12 12:15] LABS: *CRYPTOCOCCUS AG, CSF Negative (Negative); *WEST NILE VIRUS IgG, CSF Negative (Negative); *WEST NILE VIRUS IgM, CSF Negative (Negative)
--- NOTE | 2017-05-12 12:30 | NUR ---
MS1/RN BACK TO MS1 PT RETURNED FROM RADIOLOGY IN STABLE CONDITION, IV FLUIDS RESUMED. MONITORING.
[2017-05-12 13:15] LABS: *BACT BETA STREP (GROUP B) AG Negative (Negative); *BACT NEISSERIA MENING. AG Negative (Negative); *BACT STREP PNEUMONIAE AG Negative (Negative)
--- NOTE | 2017-05-12 14:18 | NUR ---
MS1/RN ROUNDS NO CHANGE OF CONDITION. MONITORING CONTINUED.
--- NOTE | 2017-05-12 14:50 | NUR ---
MS1/FACULTY PHYSICIAN OF CARE PT ENDORSED TO NURSE CROWELL TO CONTINUE CARE.
--- NOTE | 2017-05-12 15:32 | NUR ---
PATIENT IS OFF THE FLOOR FOR SURGERY
--- NOTE | 2017-05-12 18:58 | NUR ---
RN CLOSING NOTES PATIENT IS STILL OFF THE FLOOR AT SURGERY. WILL ENDORSE TO INSTRUCTIONAL TECHNOLOGY COACH NURSE.
--- NOTE | 2017-05-12 19:50 | NUR ---
RN NOTES PATIENT STILL IN OR. FAMILY IN PATIENT'S ROOM, WAITING. DR. LEMON WENT AND SPOKE WITH THE PATIENT'S FAMILY, UPDATED OF THE PATIENT'S PROGRESS POST OP. AWAITING FOR PATIENT'S RETURN IN UNIT. S/P ORIF OF R HUMERUS. SPOKE WITH DR. LEMON FOR ANY FURTHER POST-OP ORDERS. OBTAINED VERBAL ORDERS FOR THE PATIENT'S PAIN MANAGEMENT GOAL WITH MINIMAL SEDATION ABLE, WITH MEDICATING THE PATIENT WITH ONLY TYLENOL OR TRAMADOL AND IF NEEDED A SMALL DOSE OF IV MORPHINE, TO BE OBTAINED FROM PATIENT'S PRIMARY NEEDED. JAELYN CERDA AT ALL TIMES. AND PER DR. LEMON, MAKE SURE TO OBTAIN R HUMERUS XRAY PRIOR TO DISCHARGE. ORDERS NOTED AND CARRIED OUT. FAMILY MADE AWARE.
--- NOTE | 2017-05-12 20:00 | NUR ---
RN NOTES RECEIVED PATIENT FROM OR, VIA BED, WITH LULÚ PEDRO AT BEDSIDE. PATIENT PLACE ON 3LPM OF O2 VIA HUMIDIFIED O2, PATIENT'S SATURATION AT 100%. PATIENT IS ALERT, ORIENTED, OBSERVED TO BE LETHARGIC. VS STABLE, AFEBRILE, NO C/O PAIN, WILL MONITOR CLOSELY POST-OP. RANDELL MIDLINE AND L FOREARM G20, FLUSHED AND INTACT, NO INFILTRATION NOTED, IVF TO BE RESTARTED ORDERED. F/C INTACT AND DRAINING WELL WITH CLOUDY YELLOW URINE. OR ORDERS REVIEWED WITH LULÚ EAGLE, ORDERS NOTED AND CARRIED OUT. ORDERS FOLLOWED UP AND CLARIFIED WITH PHARMACY PARTICULARLY THE PERCOCET ORDERED, SPOKE WITH ANTONIO OSCAR. PATIENT'S FAMILY AT BEDSIDE, UPDATED WITH PLAN OF CARE NEEDED, ALL QUESTIONS ANSWERED. PATIENT'S NEEDS ANTICIPATED AND MET. SAFETY AND COMFORT ENSURED. BED IN LOW AND LOCKED POSITION. CALL LIGHT IN REACH. WILL MONITOR CLOSELY. Addendum: 05/13/17 at 0230 by JANIE DEAL RN PATIENT WITH R ARM SLING IN PLACE. NOTED WITH SURGICAL DRESSING INTACT, NO SOILAGE AND NO DISCHARGE. DRESSINGS, 2 SITES, ON R SHOULDER AND R UPPER ARM.
--- NOTE | 2017-05-12 20:30 | NUR ---
PT PLACED ON BIPAP AT NIGHT PER MD'S ORDER. LULÚ LIMA NOTIFIED.
[2017-05-13] VITALS (7 sets, daily range): BP systolic 107–149; BP diastolic 45–75
--- NOTE | 2017-05-13 02:13 | NUR ---
RN NOTES PATIENT IN BED, BIPAP REPLACED BY RT PER PATIENT'S REQUESTS. FAMILY AT BEDSIDE. PATIENT OBSERVED TO BE MORE ALERT AND ORIENTED. DENIES PAIN AND DISCOMFORT. VS STABLE, AFEBRILE. NEEDS ANTICIPATED AND MET. CALL LIGHT IN REACH.
[2017-05-13 06:39] LABS: BASOPHILS % (AUTO) 0.1 % (0.0-2.0); EOSINOPHILS % (AUTO) 0.8 % (0.0-6.0); HEMATOCRIT 23 % (39-51); HEMOGLOBIN 7.9 g/dL (13.5-17.5); LYMPHOCYTES # (AUTO) 0.4 /CMM (0.8-4.8); MEAN CORPUSCULAR HEMOGLOBIN 32 PG (26.0-33.0); MEAN CORPUSCULAR HGB CONC 34 g/dl (31.0-36.0); MEAN CORPUSCULAR VOLUME 93 fL (80-96); MONOCYTES # (AUTO) 0.3 /CMM (0.1-1.30); MONOCYTES % (AUTO) 6.7 % (2.0-12.0); NEUTROPHILS % (AUTO) 84.4 % (43.0-81.0); PLATELET COUNT (AUTO) 180 /CMM (150-450); RDW COEFFICIENT OF VARIATION 13.6 (11.5-15.0); RED BLOOD CELL COUNT(AUTO) 2.48 MIL/uL (4.5-6.0); WHITE BLOOD COUNT (AUTO) 4.8 K/uL (4.3-11.0)
--- NOTE | 2017-05-13 06:40 | NUR ---
RN NOTES PATIENT ASKED TO HAVE HIS BIPAP REMOVED, COORDINATED WITH RT ACCORDINGLY. RT APPROACHED RN AND INFORMED RN OF THE PATIENT'S COMPLAINT OF "FEELING HOT". ASSESSED PATIENT IMMEDIATELY. PATIENT NOTED WITH TEMP OF 102.9, ORALLY. 118bpm, 97% ON 3LPM OF O2 VIA NC, 20bpm, NO C/O PAIN. PATIENT HAS BEEN AFEBRILE ALL NIGHT MONITORED, UNTIL NOW. CALLED AND PAGED EPIC, AWAITING CALL BACK. IN THE MEANTIME, PATIENT HAS A MISCELLANEOUS ORDER FROM ID REGARDING A CULTURE ORDER. ORDERED AT THIS TIME. WILL ENDORSE ACCORDINGLY.
[2017-05-13 07:07] LABS: CALCIUM, SERUM 8.4 mg/dL (8.5-10.1); CREATININE 0.8 mg/dL (0.6-1.3); MAGNESIUM 1.9 mg/dL (1.8-2.4); POTASSIUM 4.4 mmol/L (3.5-5.1)
--- NOTE | 2017-05-13 07:10 | NUR ---
MS RN INITIAL NOTES: REC'D PT ON ASLEEP ON BED, NOT IN ANY DISTRESS, EASILY AROUSABLE, A/O X4, ABLE TO MAKE NEEDS KNOWN, WARM TO TOUCH. ON O2 AT 3LPM/NC, DENIES SOB. HAS RANDELL MIDLINE W/ NS 75 CC/HR INFUSING WELL. HAS LFA G20, SL, FLUSHED, PATENT & INTACT. IV LINES NO S/SX OF INFECTION/ INFILTRATION. HAS FC CLAMPED FOR URINE COLLECTION - UA/CS. PT S/P R HUMERUS ORIF 05/12/17, HAS RUE SLING. PT REMINDED NWB ON RUE AND TO WEAR SLING AT ALL TIMES PER MD ORDERED W/ VERBALIZATION OF UNDERSTANDING. PROVIDED COMFORT & SAFETY MEASURES. CALL LIGHT W/IN REACH. BED KEPT LOW & IN LOCKED POS. WILL CONTINUE TO MONITOR.
--- NOTE | 2017-05-13 07:36 | NUR ---
RN NOTES SPOKE WITH NANCY VALDEZ NP. RELAYED THE PATIENT'S TEMP OF 103. REVIEWED PATIENT'S CURRENT CONDITION WITH NANCY. NEW ORDERS OBTAINED, NOTED AND CARRIED OUT. ENDORSED ACCORDINGLY TO AM NURSE.
--- NOTE | 2017-05-13 08:00 | NUR ---
RN NOTES: URINE SPECIMEN SENT FOR UA/CS.
--- NOTE | 2017-05-13 08:30 | NUR ---
RN NOTES: PT SEEN & EXAMINED BY DR. GANDHI AND DR. LEMON (ORTHO SURGEON). PER DR. LEMON OKAY TO RESUME CARDIAC DIET & STOP IVF ONCE DIET STARTED. MD CHECKED POST-OP SITE, NO APPARENT PROBLEM NOTED. ICE PACK PLACED ON THE RIGHT SHOULDER PER MD'S ORDER. MD'S MADE AWARE OF FEVER 102.1, POSSIBLY POST-OP FEVER. Addendum: 05/13/17 at 1048 by MYRON CEE RN ADDENDUM: PER DR. LEMON, NEED TO WEAR SLING FOR 2 WEEKS AT ALL TIMES. PT CAN START AMBULATE & DO PHYSICAL THERAPY THEN CAN DC DU CATHETER. MADE HIM AWARE THAT PT EVAL ALREADY ORDERED. AT BEDSIDE.
[2017-05-13 10:12] LABS: *HSV 1 DNA PCR Negative (Negative); *HSV 2 DNA PCR Negative (Negative)
--- NOTE | 2017-05-13 12:00 | NUR ---
RN NOTES: PT EVALUATION DONE TODAY. PER PT ABLE TO SIT ON THE EDGE OF THE BED BUT PT C/O DIZZINESS AFTER.
--- NOTE | 2017-05-13 13:59 | NUR ---
RN NOTES: PT'S BLOOD CULTURE POSITIVE FOR GRAM POSITIVE COCCI. AWAITING CALL BACK FROM DR. NYE (ON-CALL). ILIR CRUZ MADE AWARE.
--- NOTE | 2017-05-13 14:30 | NUR ---
RN NOTES: PT SEEN & EXAMINED BY ILIR CRUZ. NANCY UPDATED ABOUT PT'S CONDITION. ILIR INFORMED DR. NYE ABOUT POSITIVE BLOOD CULTURE RESULT. AWAITING FOR ORDERS.
[2017-05-13 15:29] LABS: APPEARANCE,URINE CLOUDY (CLEAR); BILIRUBIN,URINE NEGATIVE (NEGATIVE); BLOOD, URINE 2+ Ery/uL (NEGATIVE); COLOR,URINE YELLOW (YELLOW); KETONES,URINE NEGATIVE (NEGATIVE); LEUKOCYTE ESTERASE ,URINE NEGATIVE (NEGATIVE); NITRITE, URINE NEGATIVE (NEGATIVE); PROTEIN,URINE 1+ mg/dl (NEGATIVE); UGLUCOSE NEGATIVE (NEGATIVE); UROBILINOGEN,URINE 0.2 EU/dL (0.2)
--- NOTE | 2017-05-13 18:52 | NUR ---
MS RN CLOSING NOTES: NO ACUTE CHANGES NOTED W/IN SHIFT. TOLERATED O2 AT 2LPM/NC, DENIES SOB. RANDELL MIDLINE AND LFA G20, SL, KEPT PATENT & INTACT, NO S/SX OF INFECTION/ INFILTRATION. FC REMOVED ORDERED, PT ABLE TO URINATE W/O DIFFICULTY. S/P R HUMERUS ORIF 05/12/17, KEPT ON RUE SLING. PT INSTRUCTED ON HOW TO USE INCENTIVE SPIROMETER AND KEPT REMINDED NWB ON RUE. ICE PACKS APPLIED. NO CALL BACK FROM DR. NYE RE: POSITIVE BLOOD CX RESULT. KEPT WELL RESTED. NEEDS ATTENDED. CALL LIGHT W/IN REACH. BED KEPT LOW & IN LOCKED POS. WILL ENDORSE TO PM RN FOR K[place].
[2017-05-13 19:07] LABS: BACTERIA,URINE None seen /HPF (None Seen); SQUAMOUS EPITHELIAL CELL,UR 0-2 /HPF (None Seen); URIC ACID CRYSTALS,URINE Many /HPF (None Seen); WBC,URINE 0-2 /HPF (0-3)
--- NOTE | 2017-05-13 19:32 | NUR ---
RN OPENING NOTES: RECEIVED PT ON BED WITH FAMILY AT BEDSIDE, AWAKE ALOX4 AND VERBALLY RESPONSIVE. ON SUPPLEMENTAL O2 THERAPY AT 2LPM. IV ACCESS ON LFA AND RANDELL MIDLINE BOTH PATENT AND INTACT, FLUSHING WELL. WITH COMPLAINTS OF R SHOULDER PAIN RATED 6/10. REPORTS HE IS ABLE TO URINATE WITHOUT PROBLEM. SAFETY MEASURES ENSURED. CALL LIGHT WITHIN REACH. TO MONITOR CLOSELY FOR S/SX OF INFECTION.
--- NOTE | 2017-05-13 21:02 | NUR ---
RN NOTES: PATIENT WITH COMPLAINTS OF FEELING WARM, CHECKED TEMPERATURE AT 100.1. TYLENOL GIVEN ORDERED AND COOLING MEASURES RENDERED. SPONGE BATH RENDERED WELL. TO CONTINUE TO MONITOR PATIENT.
[2017-05-14] VITALS (9 sets, daily range): BP systolic 101–152; BP diastolic 49–93
--- NOTE | 2017-05-14 | NUR ---
RN NOTES: WITH COMPLAINTS OF R SHOULDER PAIN RATED 8/10. PRN PERCOCET GIVEN ORDERED AND OFFERED REPOSITIONING BUT REFUSED AT THIS TIME. CONTINUOUSLY MONITORED. AFEBRILE AT THIS TIME. NO PATIENT ON BIPAP.
--- NOTE | 2017-05-14 04:15 | NUR ---
RN NOTES:CONTINUITY OF CARE REPORT GIVEN TO KIP CHINO. PATIENT IN BED ASLEEP NOT IN APPARENT DISTRESS AT THIS TIME. WITH FAMILY AT BEDSIDE.
--- NOTE | 2017-05-14 07:45 | NUR ---
RN NOTES: RECEIVED PT RESTING IN BED, AWAKE ALERT ORIENTED X4 ABLE TO COMMUNICATE NEEDS. GRANDSON AT BEDSIDE. ON O2 THERAPY AT 2LPM, NO SOB NOTED. IV ACCESS ON LFA AND RANDELL MIDLINE BOTH PATENT AND INTACT, FLUSHING WELL. WITH COMPLAINTS OF R SHOULDER PAIN PS 7/10. WILL ADMINISTER MEDS ORDERED. NOTED WITH R SLING, IN PLACE. PT REPORTED WET DIAPER AND PAIN TRIGGERED WHENEVER HE NEEDS TO URINATE. INCONTINENT CARE PROVIDED. HANDLED GENTLY DURING CARE. SAFETY MAINTAINED, KEPT IN COMFORTABLE POSITION, CALL LIGHT WITHIN REACH. MONITOR CLOSELY FOR S/SX OF INFECTION AND ANY CHANGES.
--- NOTE | 2017-05-14 10:13 | NUR ---
RN NOTES PT WAS SEEN AND EVALUATED BY NANCY RECYCLER FORKLIFT DRIVER TRUCK DRIVER AT BEDSIDE. SPOKE WITH NANCY, REPORTED CURRENT EVENTS, NANCY RECYCLER FORKLIFT DRIVER TRUCK DRIVER MADE ORDERS, CARRIED OUT.
--- NOTE | 2017-05-14 14:57 | NUR ---
RN NOTES 1 UNIT PRBC STARTED, VS STABLE. PT AFEBRILE
--- NOTE | 2017-05-14 15:55 | NUR ---
RN NOTES PT NOTED SKIN WARM TO TOUCH, TEMPERATURE CHECKED NOTED 102 ORAL AND 103 AXILLARY. BLOOD TRANSFUSION STOPPED, NANCY NOTIFIED OF THE INCIDENT. PER NANCY GIVE TYLENOL 1 BM AND [id number] X1. ALL ORDERS READ BACK NOTED AND CARRIED OUT. PER NANCY SEND THE REMAINING OF THE BLOOD BAG TO BLOOD BANK FOR CROSSMATCHING. ICEPACKS PROVIDED.COOLING MEASURES RENDERED
--- NOTE | 2017-05-14 16:16 | NUR ---
RN NOTES URINE SAMPLE COLLECTED PER TRANSFUSION REACTION PROTOCOL, CALLED LAB FOR SPECIMEN EVENT PLANNING INTERN
[2017-05-14 16:49] LABS: APPEARANCE,URINE SL CLOUDY (CLEAR); BILIRUBIN,URINE NEGATIVE (NEGATIVE); BLOOD, URINE 2+ Ery/uL (NEGATIVE); COLOR,URINE YELLOW (YELLOW); KETONES,URINE NEGATIVE (NEGATIVE); LEUKOCYTE ESTERASE ,URINE NEGATIVE (NEGATIVE); NITRITE, URINE NEGATIVE (NEGATIVE); PH,URINE 7.5 (5.0-8.0); PROTEIN,URINE 2+ mg/dl (NEGATIVE); UGLUCOSE NEGATIVE (NEGATIVE); UROBILINOGEN,URINE 0.2 EU/dL (0.2)
--- NOTE | 2017-05-14 17:05 | NUR ---
RN NOTES TEMPERATURE CHECKED 99.8, COOLING MEASURES CONTINUE TO PROVIDE
[2017-05-14 17:42] LABS: BACTERIA,URINE Rare /HPF (None Seen); SQUAMOUS EPITHELIAL CELL,UR 0-2 /HPF (None Seen); URIC ACID CRYSTALS,URINE Rare /HPF (None Seen); YEAST,URINE Rare /HPF (None Seen)
[2017-05-14 18:59] LABS: BASOPHILS % (AUTO) 0.2 % (0.0-2.0); EOSINOPHILS % (AUTO) 0.7 % (0.0-6.0); HEMATOCRIT 22 % (39-51); HEMOGLOBIN 7.3 g/dL (13.5-17.5); LYMPHOCYTES # (AUTO) 0.6 /CMM (0.8-4.8); LYMPHOCYTES % (AUTO) 9.9 % (20.0-44.0); MEAN CORPUSCULAR HEMOGLOBIN 31 PG (26.0-33.0); MEAN CORPUSCULAR HGB CONC 33 g/dl (31.0-36.0); MEAN CORPUSCULAR VOLUME 93 fL (80-96); MONOCYTES # (AUTO) 0.4 /CMM (0.1-1.30); MONOCYTES % (AUTO) 7.1 % (2.0-12.0); NEUTROPHILS # (AUTO) 4.6 /CMM (1.8-8.9); NEUTROPHILS % (AUTO) 82.1 % (43.0-81.0); PLATELET COUNT (AUTO) 219 /CMM (150-450); RDW COEFFICIENT OF VARIATION 13.4 (11.5-15.0); RED BLOOD CELL COUNT(AUTO) 2.33 MIL/uL (4.5-6.0); WHITE BLOOD COUNT (AUTO) 5.6 K/uL (4.3-11.0)
--- NOTE | 2017-05-14 19:17 | NUR ---
RN NOTES DR KIM AT BEDSIDE, PLAN OF CARE WAS DISCUSSED WITH PT
--- NOTE | 2017-05-14 20:00 | NUR ---
RN NOTES RESTING COMFORTABLY IN BED WITH NO RESPIRATORY DISTRESS OR SHORTNESS OF BREATH. BREATHING EVEN AND UNLABORED. NO COMPLAINT OF PAIN OF THIS TIME. ALERT AND ORIENTED. FAMILY AT BEDSIDE. WILL CONTINUE TO MONITOR.
[2017-05-14 20:05] LABS: ALBUMIN 2.3 g/dL (3.4-5.0); BILIRUBIN,TOTAL 0.4 mg/dL (0.2-1.0); CALCIUM, SERUM 8.5 mg/dL (8.5-10.1); CREATININE 1.2 mg/dL (0.6-1.3); POTASSIUM 4.4 mmol/L (3.5-5.1); TOTAL PROTEIN, SERUM 5.8 g/dL (6.4-8.2)
[2017-05-15] VITALS (10 sets, daily range): BP systolic 108–154; BP diastolic 55–84
--- NOTE | 2017-05-15 06:18 | NUR ---
RN NOTES AWAKE IN BED WITH FAMILY AT BEDSIDE. NO DISTRESS NOTED, BREATHING EVEN AND UNLABORED. ALERT AND ORIENTED. ABLE TO COMMUNICATE NEEDS VERBALLY. SLING ON RIGHT ARM TO BE WORN AT ALL TIMES. NO SIGNIFICANT CHANGE OF CONDITION. WILL ENDORSE TO AM SHIFT FOR CONTINUITY OF CARE.
[2017-05-15 06:41] LABS: INR 0.95 (0.87-1.13); PROTHROMBIN TIME 10.1 SECS (9.5-12.7)
[2017-05-15 06:43] LABS: BASOPHILS % (AUTO) 0.2 % (0.0-2.0); EOSINOPHILS # (AUTO) 0.1 /CMM (0.0-0.7); EOSINOPHILS % (AUTO) 0.7 % (0.0-6.0); HEMATOCRIT 23 % (39-51); HEMOGLOBIN 7.9 g/dL (13.5-17.5); LYMPHOCYTES # (AUTO) 0.7 /CMM (0.8-4.8); LYMPHOCYTES % (AUTO) 9.4 % (20.0-44.0); MEAN CORPUSCULAR HEMOGLOBIN 32 PG (26.0-33.0); MEAN CORPUSCULAR HGB CONC 34 g/dl (31.0-36.0); MEAN CORPUSCULAR VOLUME 93 fL (80-96); MONOCYTES # (AUTO) 0.7 /CMM (0.1-1.30); MONOCYTES % (AUTO) 9.4 % (2.0-12.0); NEUTROPHILS # (AUTO) 5.6 /CMM (1.8-8.9); NEUTROPHILS % (AUTO) 80.3 % (43.0-81.0); PLATELET COUNT (AUTO) 219 /CMM (150-450); RDW COEFFICIENT OF VARIATION 13.1 (11.5-15.0); RED BLOOD CELL COUNT(AUTO) 2.46 MIL/uL (4.5-6.0)
[2017-05-15 06:48] LABS: CALCIUM, SERUM 8.8 mg/dL (8.5-10.1); CREATININE 1.6 mg/dL (0.6-1.3); POTASSIUM 4.6 mmol/L (3.5-5.1)
--- NOTE | 2017-05-15 07:12 | NUR ---
MS RN INITIAL NOTES: REC'D PT ON ASLEEP ON BED, NOT IN ANY DISTRESS, EASILY AROUSABLE, A/O X4, ABLE TO MAKE NEEDS KNOWN. ON CPAP WHILE ASLEEP, DENIES SOB. IV ACCESS ON RANDELL MIDLINE & LFA G20, SL, FLUSHED, PATENT & INTACT, NO S/SX OF INFECTION/ INFILTRATION NOTED. HAS RUE SLING S/P R HUMERUS ORIF ON 05/12/17, SX SITE CLEAN/DRY/INTACT, NO S/SX OF INFECTION NOTED. PT REMINDED NWB ON RUE AND TO WEAR SLING AT ALL TIMES PER MD ORDERED W/ VERBALIZATION OF UNDERSTANDING. ENCOURAGED TO USE IS. PROVIDED COMFORT & SAFETY MEASURES. CALL LIGHT W/IN REACH. BED KEPT LOW & IN LOCKED POS. WILL CONTINUE TO MONITOR.
--- NOTE | 2017-05-15 12:00 | NUR ---
RN NOTES: PT SEEN & EXAMINED BY ILIR CRUZ W/ ORDERS NOTED & CARRIED OUT. BLOOD TRANSFUSION REACTION FORM (FROM BT OF PRBC 05/14/17) SENT TO BLOOD BANK REQUESTED. PATHOLOGIST TO REVIEW FIRST PRIOR TO ISSUING OF BLOOD.
--- NOTE | 2017-05-15 15:30 | NUR ---
RN NOTES: PT SEEN & EXAMINED BY DR. NYE.
--- NOTE | 2017-05-15 17:14 | NUR ---
RN NOTES: 1 UNIT OF PRBC STARTED ORDERED. PREMEDICATED W/ TYLENOL PRIOR STARTING BT ORDERED BY ILIR CRUZ DUE TO BT REACTION YESTERDAY. MONITORED FOR ANY TRANSFUSION REACTION. PT INSTRUCTED TO REPORT TO RN ANY UNUSUAL S/SX, VERBALIZED UNDERSTANDING. IV ACCESS ON RANDELL MIDLINE AND LFA G20 GOT INFILTRATED. REINSERTED NEW IV LINE ON L AC G20 W/ GOOD VENOUS RETURN, IMMEDIATELY RESTARTED TRANSFUSING PRBC ON NEW IV LINE.
--- NOTE | 2017-05-15 18:00 | NUR ---
RN NOTES: DR. KIM SEEN & EXAMINED PT. STARTED TO DO BONE MARROW BIOPSY & ASPIRATION AT BEDSIDE. AWARE.
--- NOTE | 2017-05-15 19:00 | NUR ---
MS RN CLOSING NOTES: NO ACUTE CHANGES NOTED W/IN SHIFT. PT TOLERATED WELL THE BONE MARROW BIOPSY PROCEDURE C/O DR. KIM. BONE MARROW SITE COVERED W/ DRESSING, NO ACTIVE BLEEDING NOTED. SPECIMEN ALL SENT TO PATHOLOGY, REC'D BY . 1 UNIT OF PRBC STILL ONGOING, PT IS AFEBRILE, DENIES ANY DISCOMFORT/SOB, NO BT REACTION NOTED. CHAPO KEPT ON SLING AT ALL TIMES, NWB. SX SITE KEPT CLEAN & DRY. L AC G20 KEPT PATENT & INTACT W/ NO S/SX OF INFECTION. KEPT WELL RESTED. NEEDS ATTENDED. BED KEPT LOW & IN LOCKED POS. CALL LIGHT PLACED W/IN REACH. & SON AT BEDSIDE. ENDORSED TO PM RN FOR KALIN.
--- NOTE | 2017-05-15 20:00 | NUR ---
BIKE SHOP MANAGER; REC'D PT A/O X4, ABLE TO MAKE NEEDS KNOWN. ON CPAP WHILE ASLEEP, DENIES SOB. IV ACCESS ON LAC #20 INFUSING BLOOD TRANSFUSION, FLUSHED, PATENT & INTACT, NO S/SX OF INFECTION/ INFILTRATION NOTED. HAS RUE SLING S/P R HUMERUS ORIF ON 05/12/17, SX SITE CLEAN/DRY/INTACT, NO S/SX OF INFECTION NOTED. NS AT 100 ML/HR, WILL CONTINUE AFTER FINISH BLOOD TRANSFUSION. S/P BONE MARROW BIOPSY JUST DONE EARLIER AT BEDSIDE BY DR KIM, DRESSING IS INTACT NO BLEEDING. PT REMINDED NWB ON RUE AND TO WEAR SLING AT ALL TIMES PER MD ORDERED W/ VERBALIZATION OF UNDERSTANDING. PROVIDED COMFORT & SAFETY MEASURES. CALL LIGHT W/IN REACH. BED KEPT LOW & IN LOCKED POS. WILL CONTINUE TO MONITOR.
--- NOTE | 2017-05-15 22:00 | NUR ---
CHEMISTRY TECHNICAL OFFICER; BLOOD TRANSFUSION DONE WITHOUT ANY ADVERSE REACTION. RECHECK CBC AT MORNING. NS AT 100 ML/HR INFUSING. KEEP MONITORING...
[2017-05-16 04:00] VITALS: BP 147/78
[2017-05-16 08:00] VITALS: BP 146/76
[2017-05-16 08:01] LABS: BASOPHILS % (AUTO) 0.4 % (0.0-2.0); EOSINOPHILS # (AUTO) 0.1 /CMM (0.0-0.7); EOSINOPHILS % (AUTO) 0.9 % (0.0-6.0); HEMATOCRIT 25 % (39-51); HEMOGLOBIN 8.3 g/dL (13.5-17.5); LYMPHOCYTES # (AUTO) 0.5 /CMM (0.8-4.8); LYMPHOCYTES % (AUTO) 9.3 % (20.0-44.0); MEAN CORPUSCULAR HEMOGLOBIN 31 PG (26.0-33.0); MEAN CORPUSCULAR HGB CONC 34 g/dl (31.0-36.0); MEAN CORPUSCULAR VOLUME 92 fL (80-96); MONOCYTES # (AUTO) 0.3 /CMM (0.1-1.30); MONOCYTES % (AUTO) 6.1 % (2.0-12.0); NEUTROPHILS # (AUTO) 4.6 /CMM (1.8-8.9); NEUTROPHILS % (AUTO) 83.3 % (43.0-81.0); PLATELET COUNT (AUTO) 241 /CMM (150-450); RDW COEFFICIENT OF VARIATION 13.9 (11.5-15.0); RED BLOOD CELL COUNT(AUTO) 2.68 MIL/uL (4.5-6.0); WHITE BLOOD COUNT (AUTO) 5.5 K/uL (4.3-11.0)
[2017-05-16 08:12] LABS: CALCIUM, SERUM 8.9 mg/dL (8.5-10.1); CREATININE 2.6 mg/dL (0.6-1.3); POTASSIUM 4.5 mmol/L (3.5-5.1)
[2017-05-16 12:00] VITALS: BP 146/76
[2017-05-16 16:00] VITALS: BP 133/70
[2017-05-16 17:58] LABS: CREATININE, URINE 43.3 MG/DL (30.0-125.0); URINE TOTAL PROTEIN 329.2 mg/dL (0-11.9)
--- NOTE | 2017-05-16 19:30 | NUR ---
MS RN INITIAL NOTES RECEIVED PATIENT AWAKE A/OX3, ABLE TO MAKE NEEDS KNOWN. AT BEDSIDE. DENIES PAIN OR DISCOMFORT. RESPIRATIONS EVEN AND UNLABORED WITH 3LPMO2 VIA NC. SKIN WARM AND DRY TO TOUCH. WITH RIGHT ARM SLING IN PLACE. SURGICAL DRESSING SITE CLEAN AND INTACT. HOB ELEVATED. SIDE RAILS UP AND LOCKED. BED KEPT AT LOWEST POSITION. CALL LIGHT KEPT WITHIN EASY REACH. WILL CONTINUE TO MONITOR.
[2017-05-16 20:00] VITALS: BP 142/74
--- NOTE | 2017-05-16 23:30 | NUR ---
MS RN NOTES PATIENT PLACED ON NOCTURNAL CPAP, GRANDDAUGHTER AT BEDSIDE. WILL CONTINUE TO MONITOR.
[2017-05-17 04:00] VITALS: BP 137/62
--- NOTE | 2017-05-17 06:31 | NUR ---
MS RN CLOSING NOTES NO SIGNIFICANT CHANGES OVERNIGHT. DENIES PAIN OR DISCOMFORT. PAIN MONITORED. NO RESPIRATORY DISTRESS NOTED. USED CPAP AT NIGHT. ON 3LPMO2 VIA NC. SKIN WARM AND DRY TO TOUCH. ALL NEEDS ANTICIPATED AND MET. ENCOURAGED TO ASSIST WITH ADLS TOLERATED. GRAND-DAUGHTER AT BEDSIDE. RIGHT ARM SLING IN PLACE. NO S/S OF BLEEDING NOTED. DVT PUMPS IN PLACE. SIDE RAILS UP AND LOCKED. HOB ELEVATED. SIDE RAILS UP AND LOCKED. BED KEPT AT LOWEST POSITION. CALL LIGHT KEPT WITHIN EASY REACH. WILL ENDORSE CONTINUITY OF CARE TO AM NURSE.
[2017-05-17 06:36] LABS: BASOPHILS % (AUTO) 0.4 % (0.0-2.0); EOSINOPHILS % (AUTO) 0.8 % (0.0-6.0); HEMATOCRIT 24 % (39-51); HEMOGLOBIN 8.4 g/dL (13.5-17.5); LYMPHOCYTES # (AUTO) 0.6 /CMM (0.8-4.8); LYMPHOCYTES % (AUTO) 12.2 % (20.0-44.0); MEAN CORPUSCULAR HEMOGLOBIN 32 PG (26.0-33.0); MEAN CORPUSCULAR HGB CONC 34 g/dl (31.0-36.0); MEAN CORPUSCULAR VOLUME 92 fL (80-96); MONOCYTES # (AUTO) 0.4 /CMM (0.1-1.30); MONOCYTES % (AUTO) 8.3 % (2.0-12.0); NEUTROPHILS # (AUTO) 4.1 /CMM (1.8-8.9); NEUTROPHILS % (AUTO) 78.3 % (43.0-81.0); PLATELET COUNT (AUTO) 255 /CMM (150-450); RDW COEFFICIENT OF VARIATION 13.8 (11.5-15.0); RED BLOOD CELL COUNT(AUTO) 2.65 MIL/uL (4.5-6.0); WHITE BLOOD COUNT (AUTO) 5.3 K/uL (4.3-11.0)
[2017-05-17 06:55] LABS: CALCIUM, SERUM 9.1 mg/dL (8.5-10.1); CREATININE 2.8 mg/dL (0.6-1.3)
[2017-05-17 07:18] LABS: POTASSIUM 4.2 mmol/L (3.5-5.1)
[2017-05-17 08:00] VITALS: BP 127/74
[2017-05-17 16:00] VITALS: BP 109/60
--- NOTE | 2017-05-17 19:20 | NUR ---
RN INITIAL NOTE RECEIVED PT IN NO ACUTE DISTRESS IN BED. PT IS A/O X 3 AND ABLE TO AMKE NEEDS KNOWN. PT IS O2 VIA NC @ 3LPM AND TOLERATING WELL WITH O2 SAT @ 98%. PT NOT C/O ANY SOB, DIFFICULTY BREATHING OR PAIN AT THIS TIME. PT HAS SLING ON RIGHT ARM THAT IS SECURE AND IN PLACE. PT HAS LAC 20G THAT IS CLEAN DRY INTACT AND PATENT WITH SALINE FLUSH. LINE IS SALINE LOCKED. BED IN LOW LOCKED POSITION WITH RIALS UP X 2. CALL LIGHT WITHIN REACH AND ALL SAFETY MEASURES ENSURED AND CARRIED OUT. WILL CONTINUE TO MONITOR FOR ANY CHANGES IN CONDITION.
[2017-05-17 20:00] VITALS: BP 135/75
[2017-05-18 04:00] VITALS: BP 139/69
--- NOTE | 2017-05-18 06:19 | NUR ---
RN CLOSING NOTE PT REMAINS IN NO ACUTE DISTRESS IN BED. PT DID NOT HAVE ANY SIGNIFICANT CHANGE IN CONDITION DURING SHIFT. ALL NEEDS MET, ALL ORDERS CARRIED OUT. PT DENIES ANY PAIN DURING SHIFT. WILL ENDORSE TO AM RN FOR CONTINUITY OF CARE.
[2017-05-18 06:56] LABS: BASOPHILS % (AUTO) 0.5 % (0.0-2.0); EOSINOPHILS % (AUTO) 0.6 % (0.0-6.0); HEMATOCRIT 26 % (39-51); HEMOGLOBIN 8.9 g/dL (13.5-17.5); LYMPHOCYTES # (AUTO) 0.7 /CMM (0.8-4.8); LYMPHOCYTES % (AUTO) 10.4 % (20.0-44.0); MEAN CORPUSCULAR HEMOGLOBIN 32 PG (26.0-33.0); MEAN CORPUSCULAR HGB CONC 34 g/dl (31.0-36.0); MEAN CORPUSCULAR VOLUME 92 fL (80-96); MONOCYTES # (AUTO) 0.4 /CMM (0.1-1.30); MONOCYTES % (AUTO) 5.9 % (2.0-12.0); NEUTROPHILS # (AUTO) 5.5 /CMM (1.8-8.9); NEUTROPHILS % (AUTO) 82.6 % (43.0-81.0); PLATELET COUNT (AUTO) 317 /CMM (150-450); RDW COEFFICIENT OF VARIATION 13.7 (11.5-15.0); RED BLOOD CELL COUNT(AUTO) 2.82 MIL/uL (4.5-6.0); WHITE BLOOD COUNT (AUTO) 6.6 K/uL (4.3-11.0)
[2017-05-18 07:36] LABS: CALCIUM, SERUM 9.4 mg/dL (8.5-10.1); CREATININE 2.8 mg/dL (0.6-1.3); POTASSIUM 4.7 mmol/L (3.5-5.1)
[2017-05-18 08:00] VITALS: BP 116/67
[2017-05-18 16:00] VITALS: BP 107/57
--- NOTE | 2017-05-18 16:00 | NUR ---
RN NOTE DISCHARGE TO [facility] HELD DUE TO OSTEOMYELITIS FROM BIOPSY REPORT, DR BANERJEE NOTIFIED, DR NYE CONSULT ORDERED.
[2017-05-18 20:00] VITALS: BP 144/60
--- NOTE | 2017-05-19 00:30 | NUR ---
RT PT PLACED ON NOC BIPAP. RN WAS MADE AWARE OF SMALL BRUISING ON BRIDGE OF NOSE PRIOR TO PLACING PT ON BIPAP. ACCORDING TO FAMILY AT BEDSIDE IT HAS BEEN THERE A FEW DAYS DUE TO MASK MOVING DURING HIS SLEEP. PT TOLERATING BIPAP WELL NO SOB OR DISTRESS NOTED. WILL CONTINUE TO MONITOR. Addendum: 05/19/17 at 0033 by KEISHA BRAY RT Amended: Links added.
[2017-05-19 04:00] VITALS: BP 135/62
[2017-05-19 05:00] VITALS: BP 135/62
[2017-05-19 06:42] LABS: CALCIUM, SERUM 8.9 mg/dL (8.5-10.1); CREATININE 3.1 mg/dL (0.6-1.3); POTASSIUM 4.2 mmol/L (3.5-5.1)
--- NOTE | 2017-05-19 07:54 | NUR ---
RN NOTES PATIENT IN BED WITH DISTRESS NOTED. AMBULATORY WITH ASSIST. CONTINENT OF BOWEL AND BLADDER MOVEMENT. ALERT AND ORIENTED. ABLE TO VERBALIZE NEEDS. NO COMPLAINT OF PAIN. ON BIPAP, TOLERATED WELL. KEPT CLEAN AND DRY. ENDORSE TO AM SHIFT FOR CONTINUITY OF CARE
[2017-05-19 08:00] VITALS: BP 117/69
--- NOTE | 2017-05-19 08:24 | NUR ---
RN NOTES RECEIVED PT FROM DOGMAN/WOMAN IN STABLE CONDITION, A&OX3, SATING WELL ON SOB NOTED. LAC 20 GAUGE IV SITE DRY AND INTACT. R ARM SLING IN PLACE. DAUGHTER AT BEDSIDE. SIDE RAILS UPX3, CALL LIGHT WITHIN REACH, BED LOCKED AND IN LOWEST POSITION, WILL CONT TO MONITOR.
[2017-05-19 10:18] VITALS: BP 117/69
--- NOTE | 2017-05-19 10:49 | NUR ---
RN NOTES PER DR BANERJEE PT OK TO BE DISCHARGED TO [facility] TODAY.
--- NOTE | 2017-05-19 15:55 | NUR ---
RN NOTES REPORT GIVEN TO AMAURY FROM [facility] FOR 1600.
--- NOTE | 2017-05-19 16:42 | NUR ---
RN NOTES PT DISCHARGED WITH EMT IN STABLE CONDITION.
== END 2017-05-19 17:25 | DRG 853 ==
LOC: ER 20:44 → MED 23:53 → ICU 05-06 07:46 → TELE-TD 05-09 11:51 → MEDSG1 05-10 09:55
PROVIDERS: ADMIT Nurse Practitioner Acute Care; ATTEND Nurse Practitioner Acute Care
PROC: 05H633Z Insertion of Infusion Device into Left Subclavian Vein, Percutaneous Approach (ICD-10-PCS; principal; 2017-05-07)
PROC: B547ZZA Ultrasonography of Left Subclavian Vein, Guidance (ICD-10-PCS; principal; 2017-05-07)
PROC: 5A09457 Assistance with Respiratory Ventilation, 24-96 Consecutive Hours, Continuous Positive Airway Pressure (ICD-10-PCS; 2017-05-09)
PROC: 009U3ZX Drainage of Spinal Canal, Percutaneous Approach, Diagnostic (ICD-10-PCS; 2017-05-09)
PROC: 0PSC04Z Reposition Right Humeral Head with Internal Fixation Device, Open Approach (ICD-10-PCS; 2017-05-12)
PROC: 30233N1 Transfusion of Nonautologous Red Blood Cells into Peripheral Vein, Percutaneous Approach (ICD-10-PCS; 2017-05-14)
PROC: 07DR3ZX Extraction of Iliac Bone Marrow, Percutaneous Approach, Diagnostic (ICD-10-PCS; 2017-05-15)
PROC: 02HV33Z Insertion of Infusion Device into Superior Vena Cava, Percutaneous Approach (ICD-10-PCS; 2017-05-19)
PROC: B548ZZA Ultrasonography of Superior Vena Cava, Guidance (ICD-10-PCS; 2017-05-19)
DX: A41.9 Sepsis, unspecified organism (principal); I21.4 Non-ST elevation (NSTEMI) myocardial infarction; J96.90 Respiratory failure, unspecified, unspecified whether with hypoxia or hypercapnia; N17.0 Acute kidney failure with tubular necrosis; C79.51 Secondary malignant neoplasm of bone; C90.00 Multiple myeloma not having achieved remission; I48.92 Unspecified atrial flutter; D69.6 Thrombocytopenia, unspecified; M84.521A Pathological fracture in neoplastic disease, right humerus, initial encounter for fracture; M86.621 Other chronic osteomyelitis, right humerus; I10 Essential (primary) hypertension; D50.9 Iron deficiency anemia, unspecified; E78.5 Hyperlipidemia, unspecified; E83.51 Hypocalcemia; Z87.891 Personal history of nicotine dependence; R73.9 Hyperglycemia, unspecified; I25.2 Old myocardial infarction; I25.10 Atherosclerotic heart disease of native coronary artery without angina pectoris; E83.42 Hypomagnesemia; N20.0 Calculus of kidney; K59.00 Constipation, unspecified; D47.2 Monoclonal gammopathy; G47.33 Obstructive sleep apnea (adult) (pediatric)
CPT/HCPCS: 36415; 36569; 36600; 70450-TC; 71010-TC; 71250-TC; 73030-TC; 73060-TC; 76700-TC; 77075-TC; 80048-TC; 80053-TC; 80061-TC; 80076-TC; 80202-TC; 81000-TC; 82232; 82272-TC; 82306; 82570-TC; 82728-TC; 82746; 82784; 82803-TC; 83540-TC; 83605-TC; 83615-TC; 83735-TC; 84100-TC; 84153-TC; 84154-TC; 84155; 84155-TC; 84156; 84165; 84166; 84300-TC; 84439-TC; 84443-TC; 84484-TC; 85025-TC; 85610-TC; 85652-TC; 85730-TC; 86140-TC; 86334; 86335; 86431-TC; 86635; 86788; 86789; 86850-TC; 86921-TC; 87040-TC; 87070-TC; 87081-TC; 87086-TC; 87102-TC; 87116; 87186-TC; 87206; 87400; 87802; 87899; 88305-TC; 88311-TC; 88312-TC; 88342; 89051-TC; 93307-TC; 94762-TC; 94799-TC; 97116-TC; 97530-TC; A4217; A4565; A4606; A6402; A9503; C1713; C1751; J0133; J0290; J0690; J0696; J1170; J1644; J1650; J1885; J2250; J2270; J2405; J2543; J2704; J2710; J2916; J3010; J3370; J3475; J3490; J7030; J7050; J7060; P9016-BL; Z7610

== ENCOUNTER 2017-05-31 17:21 | Emergency (ER) | payer BC, MEDICARE ==
[~2017-05-31] VITALS: Ht 175.3 cm; Wt 74.4 kg
[2017-05-31 17:21] VITALS: BP 148/95
[2017-05-31] MEDS ORDERED: MORPHINE SULFATE INJ 2 MG/ML DISP.SYRIN IV ONE (19:30)
== END 2017-05-31 20:10 | disposition home or self-care (01) ==
LOC: ER 17:24
DX: Z45.2 Encounter for adjustment and management of vascular access device (principal); Z88.8 Allergy status to other drugs, medicaments and biological substances; Z79.82 Long term (current) use of aspirin
CPT/HCPCS: 36569; 71010-TC; A4606; C1751; Z7610

== ENCOUNTER 2017-06-21 09:01 | Inpatient (IN) | payer BC, MEDICARE ==
[~2017-06-21] VITALS: Ht 175.3 cm; Wt 70.8 kg
[2017-06-21] VITALS (8 sets, daily range): BP systolic 129–167; BP diastolic 72–101
--- NOTE | 2017-06-21 09:24 | NUR ---
PT TO ED ROOM 02. SENT BY PMD FOR HEMOGLOBIN 6.6. A/A/O. AMBULATORY. SIDE RAISL UP. HOB ELEVATED. [facility] SEEN AND EVALUATED BY Tammy PALOMINO.
--- NOTE | 2017-06-21 09:33 | NUR ---
BLOOD SAMPLES OBTAINED FROM RANDELL PICC LINE. ASEPTIC TECHNIQUE - FOLLOWED.
--- NOTE | 2017-06-21 09:40 | NUR ---
CHEST X-RAY AT BEDSIDE
[2017-06-21 09:42] LABS: BASOPHILS % (AUTO) 0.2 % (0.0-2.0); EOSINOPHILS # (AUTO) 0.2 /CMM (0.0-0.7); EOSINOPHILS % (AUTO) 5.1 % (0.0-6.0); LYMPHOCYTES # (AUTO) 0.7 /CMM (0.8-4.8); LYMPHOCYTES % (AUTO) 20.6 % (20.0-44.0); MEAN CORPUSCULAR HEMOGLOBIN 31 PG (26.0-33.0); MEAN CORPUSCULAR HGB CONC 35 g/dl (31.0-36.0); MEAN CORPUSCULAR VOLUME 89 fL (80-96); MONOCYTES # (AUTO) 0.4 /CMM (0.1-1.30); MONOCYTES % (AUTO) 10.6 % (2.0-12.0); NEUTROPHILS # (AUTO) 2.1 /CMM (1.8-8.9); NEUTROPHILS % (AUTO) 63.5 % (43.0-81.0); PLATELET COUNT (AUTO) 157 /CMM (150-450); RDW COEFFICIENT OF VARIATION 13.2 (11.5-15.0); RED BLOOD CELL COUNT(AUTO) 2.12 MIL/uL (4.5-6.0); WHITE BLOOD COUNT (AUTO) 3.3 K/uL (4.3-11.0)
[2017-06-21 09:47] LABS: CALCIUM, SERUM 9.5 mg/dL (8.5-10.1); CREATININE 2.7 mg/dL (0.6-1.3); POTASSIUM 4.7 mmol/L (3.5-5.1)
[2017-06-21] MEDS ORDERED: LINE600T PO (09:48)
[2017-06-21] MEDS ORDERED: FERR-58 PO (09:48)
[2017-06-21] MEDS ORDERED: MERO500V3 IV (09:48)
[2017-06-21] MEDS ORDERED: MULT-1169 PO (09:48)
[2017-06-21 09:51] LABS: HEMOGLOBIN 6.5 g/dL (13.5-17.5)
[2017-06-21 09:52] LABS: HEMATOCRIT 19 % (39-51)
[2017-06-21 09:53] LABS: ALBUMIN 3.6 g/dL (3.4-5.0); BILIRUBIN,TOTAL 0.5 mg/dL (0.2-1.0); TOTAL PROTEIN, SERUM 6.9 g/dL (6.4-8.2)
[2017-06-21 09:59] LABS: INR 0.96 (0.87-1.13)
[2017-06-21] MEDS ORDERED: ACETAMINOPHEN 325 MG TABLET PO ONE (10:30)
[2017-06-21] MEDS ORDERED: ACETAMINOPHEN 325 MG TABLET ONE (10:35)
[2017-06-21 10:48] LABS: BAND % (MANUAL) 4 % (0.0-5.0); EOSINOPHILS % (MANUAL) 7 % (0-4); LYMPHOCYTES % (MANUAL) 18 % (16-48); MONOCYTES % (MANUAL) 9 % (0-11.0); NEUTROPHILS % (MANUAL) 62 (42-76)
--- NOTE | 2017-06-21 10:50 | NUR ---
BLOOD TRANSFUSION CONSENT SIGNED BY PATIENT, WITNESSED, PLACED IN CHART.
--- NOTE | 2017-06-21 11:02 | NUR ---
panel on-call paged
[2017-06-21] MEDS ORDERED: IV NS 0.9% 1,000 ML BAG IV ONE (11:30)
--- NOTE | 2017-06-21 12:15 | NUR ---
RN INITIAL NOTE REPORT RECEIVED FROM BRAXTON IN EMERGENCY ROOM. PATIENT ARRIVED ON UNIT VIA WHEELCHAIR. PATIENT IS AWAKE, ALERT AND ORIENTED. ABLE TO MAKE NEEDS KNOWN. NO S/S OF PAIN OR DISCOMFORT. DENIES PAIN AT THIS TIME. PATIENT IS AMBULATORY. PICC LINE FLUSHED, PATENT. SKIN IS WARM AND DRY TO TOUCH. SINUS RHYTHM ON TELE MONITOR. HEART RATE 84. RESPIRATIONS ARE EVEN AND UNLABORED. SATING WELL ON ROOM AIR. SAFETY PRECAUTIONS IMPLEMENTED, BED IN LOCKED, LOW POSITION WITH TWO SIDE RAILS UP. CALL LIGHT AND BELONGINGS WITHIN EASY REACH. WILL CONTINUE TO MONITOR.
[2017-06-21] MEDS ORDERED: ONDANSETRON HCL/PF 4 MG/2 ML VIAL IVP PRN (12:30)
[2017-06-21] MEDS ORDERED: HYDROCODONE/APAP 5/325MG 1 EACH TABLET PO PRN (12:30)
[2017-06-21] MEDS ORDERED: MEROPENEM 500 MG VIAL IV SCH (12:30)
[2017-06-21] MEDS ORDERED: ZOLPIDEM TARTRATE 5 MG TABLET PO PRN (12:30)
[2017-06-21] MEDS ORDERED: ACETAMINOPHEN 325 MG TABLET PO PRN (12:30)
[2017-06-21] MEDS ORDERED: Z GUARD REMEDY 2 OZ OINT TP PRN (12:30)
[2017-06-21] MEDS: FERROUS SULFATE (325 MG) 325 MG/TAB TABLET PO SCH (13:48)
[2017-06-21] MEDS: ASPIRIN EC 81 MG TABLET.DR PO SCH (13:48)
[2017-06-21] MEDS: AMLODIPINE BESYLATE 5 MG TABLET PO SCH (13:49)
[2017-06-21] MEDS: MULTIVIT, IRON, MIN NO. 8, FA 1 TAB PO SCH (13:50)
[2017-06-21] MEDS: MEROPENEM 500 MG in IV NS 0.9% 50 ML IV SCH (16:32)
[2017-06-21] MEDS: ATENOLOL 50 MG TABLET PO SCH (17:39)
--- NOTE | 2017-06-21 20:00 | NUR ---
ASSEMBLY LINE SUPERVISOR NOTES RECEIVED PT IN BED, AWAKE. A/O X4. FAMILY AT BEDSIDE. TELE READS SR AT 80 BPM. ON ROOM AIR, SAUL WELL. PT REQUESTS CPAP AT NIGHT. ABLE TO AMBULATE, SKIN INTACT. ON REGULAR DIET, HAS APPETITE BUT COMPLAINS OF BITTER TASTE AND STATES HIS PCP HAS TOLD HIM THAT HE HAS AN ORAL YEAST INFECTION FOR WHICH HE IS TAKING AN ORAL SUSPENSION AT HOME. PT DENIES PAIN AND N/V AT THIS TIME. CALL LIGHT WITHIN REACH. HOB SLIGHTLY ELEVATED. SIDE RAILS X2. ALL NEEDS MET.
--- NOTE | 2017-06-21 20:30 | NUR ---
PODIATRY PROFESSOR NOTES CONTACTED DR MCADAMS AND MADE AWARE OF PT REQUEST FOR NOCTURNAL CPAP. ORDER RECEIVED FOR INITIATE NOCTURNAL CPAP.
[2017-06-21] MEDS: SIMVASTATIN 20 MG TABLET PO SCH (22:10)
[2017-06-21] MEDS: IV NS 0.9% 1,000 ML IV PRN (22:10)
[2017-06-22] VITALS (12 sets, daily range): BP systolic 119–148; BP diastolic 56–95
[2017-06-22] MEDS: MEROPENEM 500 MG in IV NS 0.9% 50 ML IV SCH ×2 (00:13→13:31)
[2017-06-22 06:28] LABS: BASOPHILS % (AUTO) 0.2 % (0.0-2.0); EOSINOPHILS # (AUTO) 0.2 /CMM (0.0-0.7); EOSINOPHILS % (AUTO) 5.7 % (0.0-6.0); LYMPHOCYTES # (AUTO) 0.5 /CMM (0.8-4.8); LYMPHOCYTES % (AUTO) 17.1 % (20.0-44.0); MEAN CORPUSCULAR HEMOGLOBIN 30 PG (26.0-33.0); MEAN CORPUSCULAR HGB CONC 34 g/dl (31.0-36.0); MEAN CORPUSCULAR VOLUME 88 fL (80-96); MONOCYTES # (AUTO) 0.2 /CMM (0.1-1.30); NEUTROPHILS # (AUTO) 1.9 /CMM (1.8-8.9); PLATELET COUNT (AUTO) 127 /CMM (150-450); RDW COEFFICIENT OF VARIATION 13.8 (11.5-15.0); RED BLOOD CELL COUNT(AUTO) 2.15 MIL/uL (4.5-6.0); WHITE BLOOD COUNT (AUTO) 2.8 K/uL (4.3-11.0)
[2017-06-22 06:48] LABS: ALBUMIN 3.1 g/dL (3.4-5.0); BILIRUBIN,TOTAL 0.4 mg/dL (0.2-1.0); CALCIUM, SERUM 8.9 mg/dL (8.5-10.1); CREATININE 2.3 mg/dL (0.6-1.3); MAGNESIUM 1.9 mg/dL (1.8-2.4); PHOSPHORUS 3.7 mg/dL (2.5-4.9); POTASSIUM 4.1 mmol/L (3.5-5.1); TOTAL PROTEIN, SERUM 5.9 g/dL (6.4-8.2)
[2017-06-22 07:37] LABS: HEMOGLOBIN 6.5 g/dL (13.5-17.5)
[2017-06-22 07:38] LABS: HEMATOCRIT 19 % (39-51)
--- NOTE | 2017-06-22 07:58 | NUR ---
INITIAL CLIENT ACCOUNT SPECIALIST NOTE RCVD PT AWAKE AND ALERT SHOWING NO S/O DISTRESS OR PAIN. SR ON TELE. PER REPORT PT AMBULATORY WITH STEADY GAIT. RANDELL PICC LINE C/D/I/PATENT. PLACEMENT VERIFIED BY CHEST XRAY. IVF INFUSING NO S/O INFILTRATION/PHLEBITIS OBSERVED. WILL CONTINUE TO MONITOR PT FOR SAFETY AND COMFORT. CALL LIGHT WITHIN REACH. BED IN LOW AND LOCKED POSITION.
[2017-06-22 08:05] LABS: BAND % (MANUAL) 4 % (0.0-5.0); EOSINOPHILS % (MANUAL) 4 % (0-4); LYMPHOCYTES % (MANUAL) 14 % (16-48); MONOCYTES % (MANUAL) 10 % (0-11.0); NEUTROPHILS % (MANUAL) 68 (42-76)
--- NOTE | 2017-06-22 08:37 | NUR ---
RISK INVESTIGATOR NOTE DR. CHILDS CALLED REGARDING PT'S LOW HGB THIS AM. RCVD ORDER FOR 1 UNIT PRBC. PT STATES THAT HE'S BEEN TAKING ZYVOX AND NYSTATIN AT HOME. MD AGREED TO CONTINUE BOTH MEDICATIONS. ORDERS ENTERED AND CARRIED OUT. PT STATES THAT NO BLOOD OBSERVED UPON URINATION OR PRESENT IN STOOLS. DR. CHILDS INFORMED.
[2017-06-22] MEDS ORDERED: LINEZOLID 600 MG TABLET PO SCH (09:00)
[2017-06-22] MEDS: LINEZOLID 600 MG TABLET PO SCH ×3 (09:41→22:18)
[2017-06-22] MEDS: FERROUS SULFATE (325 MG) 325 MG/TAB TABLET PO SCH (09:41)
[2017-06-22] MEDS: MULTIVIT, IRON, MIN NO. 8, FA 1 TAB PO SCH (09:41)
[2017-06-22] MEDS: ASPIRIN EC 81 MG TABLET.DR PO SCH (09:41)
[2017-06-22] MEDS: NYSTATIN (PYXIS) 500,000 UNIT/5 ML ORAL.SUSP PO SCH ×3 (09:42→16:43)
[2017-06-22] MEDS: AMLODIPINE BESYLATE 5 MG TABLET PO SCH (09:42)
[2017-06-22] MEDS: ATENOLOL 50 MG TABLET PO SCH ×3 (09:42→22:18)
--- NOTE | 2017-06-22 11:32 | NUR ---
FOREIGN CLERK NOTE BLOOD TRANSFUSION STARTED, PT'S VITAL SIGNS REMAIN STABLE. PT'S AT BEDSIDE INSTRUCTED ON THE LENGTH OF THE TRANSFUSION AND TO CALL RN WHEN PT NEEDS TO AMBULATE TO RESTROOM TO BE ASSISTED WITH IV PUMP. WILL CONTINUE TO MONITOR.
--- NOTE | 2017-06-22 15:28 | NUR ---
CARBURETOR SPECIALIST NOTE PT TOLERATED BLOOD TRANSFUSION WELL. WILL CONTINUE TO MONITOR.
[2017-06-22] MEDS: IV NS 0.9% 1,000 ML IV PRN (16:47)
--- NOTE | 2017-06-22 17:02 | NUR ---
MEDICATION RN NOTE PT WANTS TO CONTINUE TAKING HIS ATENOLOL AND ZYVOX ON A Q12H SCHEDULE RATHER THAN BID. MEDICATION'S FREQUENCY ADJUSTED.
--- NOTE | 2017-06-22 18:54 | NUR ---
ELEVATING GRADER OPERATOR NOTE PT REMAINS STABLE, AT BEDSIDE. SR ON TELE. NO S/O DISTRESS/PAIN OBSERVED/VERBALIZED. IVF INFUSING. PT'S CARE WILL BE ENDORSED TO DIRECTOR IT PROJECT RN FOR CONTINUITY OF CARE.
--- NOTE | 2017-06-22 20:00 | NUR ---
RN NOTES RECEIVED PATIENT AWAKE IN BED WITH NO RESPIRATORY DISTRESS OR SHORTNESS OF BREATH. ON ROOM AIR, TOLERATING WELL. AMBULATORY. ALERT AND ORIENTED. VERBALLY ABLE TO COMMUNICATE NEEDS. RANDELL PICC LINE PATENT AND INTACT WITH NS @75ML/HR TOLERATING WELL. KEPT CLEAN AND DRY. WILL CONTINUE TO MONITOR.
[2017-06-22 20:46] LABS: BASOPHILS % (AUTO) 0.2 % (0.0-2.0); EOSINOPHILS # (AUTO) 0.2 /CMM (0.0-0.7); EOSINOPHILS % (AUTO) 4.8 % (0.0-6.0); HEMATOCRIT 23 % (39-51); LYMPHOCYTES # (AUTO) 0.6 /CMM (0.8-4.8); LYMPHOCYTES % (AUTO) 17.9 % (20.0-44.0); MEAN CORPUSCULAR HEMOGLOBIN 30 PG (26.0-33.0); MEAN CORPUSCULAR HGB CONC 35 g/dl (31.0-36.0); MEAN CORPUSCULAR VOLUME 87 fL (80-96); MONOCYTES # (AUTO) 0.3 /CMM (0.1-1.30); MONOCYTES % (AUTO) 10.9 % (2.0-12.0); NEUTROPHILS # (AUTO) 2.1 /CMM (1.8-8.9); NEUTROPHILS % (AUTO) 66.2 % (43.0-81.0); PLATELET COUNT (AUTO) 129 /CMM (150-450); RDW COEFFICIENT OF VARIATION 13.6 (11.5-15.0); RED BLOOD CELL COUNT(AUTO) 2.63 MIL/uL (4.5-6.0); WHITE BLOOD COUNT (AUTO) 3.1 K/uL (4.3-11.0)
[2017-06-22] MEDS: SIMVASTATIN 20 MG TABLET PO SCH (21:23)
[2017-06-23] VITALS: BP 129/69
[2017-06-23] MEDS: MEROPENEM 500 MG in IV NS 0.9% 50 ML IV SCH ×2 (00:01→13:02)
[2017-06-23 06:51] LABS: BASOPHILS % (AUTO) 0.5 % (0.0-2.0); EOSINOPHILS # (AUTO) 0.1 /CMM (0.0-0.7); EOSINOPHILS % (AUTO) 5.3 % (0.0-6.0); HEMATOCRIT 22 % (39-51); HEMOGLOBIN 7.7 g/dL (13.5-17.5); LYMPHOCYTES # (AUTO) 0.5 /CMM (0.8-4.8); LYMPHOCYTES % (AUTO) 20.4 % (20.0-44.0); MEAN CORPUSCULAR HEMOGLOBIN 30 PG (26.0-33.0); MEAN CORPUSCULAR HGB CONC 34 g/dl (31.0-36.0); MEAN CORPUSCULAR VOLUME 87 fL (80-96); MONOCYTES # (AUTO) 0.3 /CMM (0.1-1.30); MONOCYTES % (AUTO) 9.8 % (2.0-12.0); NEUTROPHILS # (AUTO) 1.7 /CMM (1.8-8.9); PLATELET COUNT (AUTO) 122 /CMM (150-450); RDW COEFFICIENT OF VARIATION 13.5 (11.5-15.0); RED BLOOD CELL COUNT(AUTO) 2.56 MIL/uL (4.5-6.0); WHITE BLOOD COUNT (AUTO) 2.6 K/uL (4.3-11.0)
--- NOTE | 2017-06-23 07:30 | NUR ---
RN NOTE received patient resting in bed a+o x4. RANDELL picc line with NS 75ml/hr. denies pain, denies nausea. inquiring about discharge plan. will follow up. discussed disease process and medication at length. patient verbalized understanding. observed patient ambulating to bathroom with steady gait. pt. says BM has been formed. patient understands call light use.
[2017-06-23 08:00] VITALS: BP 124/68
[2017-06-23 10:35] LABS: CALCIUM, SERUM 8.6 mg/dL (8.5-10.1); MAGNESIUM 1.9 mg/dL (1.8-2.4); PHOSPHORUS 4.3 mg/dL (2.5-4.9)
[2017-06-23] MEDS: ATENOLOL 50 MG TABLET PO SCH (10:43)
[2017-06-23] MEDS: ASPIRIN EC 81 MG TABLET.DR PO SCH (10:43)
[2017-06-23] MEDS: FERROUS SULFATE (325 MG) 325 MG/TAB TABLET PO SCH (10:44)
[2017-06-23] MEDS: AMLODIPINE BESYLATE 5 MG TABLET PO SCH (10:44)
[2017-06-23] MEDS: NYSTATIN (PYXIS) 500,000 UNIT/5 ML ORAL.SUSP PO SCH ×2 (10:44→13:02)
[2017-06-23] MEDS: MULTIVIT, IRON, MIN NO. 8, FA 1 TAB PO SCH (10:44)
[2017-06-23] MEDS: LINEZOLID 600 MG TABLET PO SCH (10:44)
--- NOTE | 2017-06-23 11:38 | NUR ---
Medication note medication noted as non-admin during past shift because e-mar cleared for up-to-date administration [facility] medication administration record is in patient's chart, documented by night nurse. medication administration for this morning late d/t computer charting system delays, unknown orders. all due medication given, patient verbalized understanding of schedule and timing after explained situation. no change in condition r/t late schedule.
--- NOTE | 2017-06-23 11:47 | NUR ---
RN NOTE DR. CHILDS AT NURSES STATING AWARE OF HEMATOLOGY LABS RESULTS OF TODAY.
[2017-06-23 12:00] VITALS: BP 148/80
[2017-06-23 13:05] LABS: BAND % (MANUAL) 1 % (0.0-5.0); LYMPHOCYTES % (MANUAL) 23 % (16-48); MONOCYTES % (MANUAL) 6 % (0-11.0); NEUTROPHILS % (MANUAL) 70 (42-76)
--- NOTE | 2017-06-23 15:00 | NUR ---
discharge note order for discharge acknowledged. VS stable, Dr. Donato aware BP 148/80, educated patient on risks of HTN and to monitor closely at home, return is symptoms persist. educated patient on anemia and to f/u closely with PCP. patient has home health nurse visit home to administer atbx IV daily. central line dressing changed sterile. no s/s of infection at site. IV staying with patient. provided written education, d/c summary, medication list- per MD no new medication. patient signed and confirmed belongings list. Lizzeth at bed side. patient ambulating with steady stable gait. is patient's transportation. tele box removed. patient left facility.
== END 2017-06-23 15:00 | disposition home or self-care (01) | DRG 840 ==
LOC: ER 09:06 → MEDSG1 11:29 → TELE1 12:12
PROVIDERS: ADMIT Internal Medicine; ATTEND Internal Medicine
PROC: 30233N1 Transfusion of Nonautologous Red Blood Cells into Peripheral Vein, Percutaneous Approach (ICD-10-PCS; principal; 2017-06-21)
DX: C90.00 Multiple myeloma not having achieved remission (principal); N17.0 Acute kidney failure with tubular necrosis; M86.621 Other chronic osteomyelitis, right humerus; N18.9 Chronic kidney disease, unspecified; I12.9 Hypertensive chronic kidney disease with stage 1 through stage 4 chronic kidney disease, or unspecified chronic kidney disease; L08.9 Local infection of the skin and subcutaneous tissue, unspecified; D63.0 Anemia in neoplastic disease
CPT/HCPCS: 36415; 71010-TC; 80048-TC; 80053-TC; 80061-TC; 83735-TC; 84100-TC; 85025-TC; 85730-TC; 86850-TC; 86921-TC; 87081-TC; A4216; A4606; J2185; J2405; J7030; J7050; P9016-BL; Z7610

== ENCOUNTER 2017-06-24 09:47 | Emergency (ER) | payer BC, MEDICARE ==
[~2017-06-24] VITALS: Ht 175.3 cm; Wt 68.0 kg
[~2017-06-24 09:47] MED LIST changes: +FERR-58 PO; +LINE600T PO; -LISI40TA4 PO; +MERO500V3 IV; +MULT-1169 PO
--- NOTE | 2017-06-24 10:28 | NUR ---
PICC LINE DE-CLOGGED WITH STERILE NSS ASEPTICALLY,TOLERATED WELL, INFUSED HIS MEROPENEM IVPB PER DR HZU.
[2017-06-24 11:05] VITALS: BP 145/84
== END 2017-06-24 11:09 | disposition home or self-care (01) ==
LOC: ER 09:49
DX: Z45.2 Encounter for adjustment and management of vascular access device (principal); I10 Essential (primary) hypertension; Z85.89 Personal history of malignant neoplasm of other organs and systems; Z88.8 Allergy status to other drugs, medicaments and biological substances; Z98.890 Other specified postprocedural states; Z79.82 Long term (current) use of aspirin
CPT/HCPCS: 99284; A4606; Z7610

== ENCOUNTER 2017-09-01 15:52 | Emergency (ER) | payer BC, MEDICARE ==
[~2017-09-01] VITALS: Ht 175.3 cm; Wt 75.3 kg
--- NOTE | 2017-09-01 15:55 | NUR ---
FROM DR SYKES'S OFFICE: ABNORMAL LABS, Hgb=7.3; DYSPNEA. Hx OF MULTIPLE MYELOMA
[2017-09-01 17:08] LABS: BASOPHILS % (AUTO) 0.2 % (0.0-2.0); EOSINOPHILS % (AUTO) 0.5 % (0.0-6.0); HEMATOCRIT 24 % (39-51); HEMOGLOBIN 8.1 g/dL (13.5-17.5); LYMPHOCYTES # (AUTO) 0.3 /CMM (0.8-4.8); LYMPHOCYTES % (AUTO) 6.8 % (20.0-44.0); MEAN CORPUSCULAR HEMOGLOBIN 31 PG (26.0-33.0); MEAN CORPUSCULAR HGB CONC 34 g/dl (31.0-36.0); MEAN CORPUSCULAR VOLUME 92 fL (80-96); MONOCYTES # (AUTO) 0.1 /CMM (0.1-1.30); MONOCYTES % (AUTO) 1.7 % (2.0-12.0); NEUTROPHILS # (AUTO) 4.6 /CMM (1.8-8.9); NEUTROPHILS % (AUTO) 90.8 % (43.0-81.0); PLATELET COUNT (AUTO) 168 /CMM (150-450); RDW COEFFICIENT OF VARIATION 17.5 (11.5-15.0); RED BLOOD CELL COUNT(AUTO) 2.62 MIL/uL (4.5-6.0)
[2017-09-01 17:18] LABS: CALCIUM, SERUM 8.5 mg/dL (8.5-10.1); CREATININE 1.3 mg/dL (0.6-1.3); POTASSIUM 3.4 mmol/L (3.5-5.1)
[2017-09-01 17:23] LABS: PROTHROMBIN TIME 10.4 SECS (9.5-12.7)
[2017-09-01] MEDS ORDERED: DEXA4TAB PO (17:38)
[2017-09-01] MEDS ORDERED: CHOL100044 PO (17:38)
[2017-09-01] MEDS ORDERED: CYAN100096 PO (17:38)
[2017-09-01] MEDS ORDERED: LENA25CA PO (17:38)
[2017-09-01] MEDS ORDERED: POTASSIUM CHLORIDE 20 MEQ TAB.PRT.SR PO ONE ×2 (18:30→19:17)
--- NOTE | 2017-09-01 19:38 | NUR ---
Patient discharged to home in stable condition. Written and verbal after care instructions given. Patient verbalizes understanding of instruction.
--- NOTE | 2017-09-01 19:38 | NUR ---
IV removed. Catheter intact and site benign. Pressure and 4x4 applied to site. No bleeding noted.
[2017-09-01 19:40] VITALS: BP 140/83
== END 2017-09-01 19:40 | disposition home or self-care (01) ==
LOC: ER 15:56
DX: E87.6 Hypokalemia (principal); D64.9 Anemia, unspecified; E78.00 Pure hypercholesterolemia, unspecified; I12.9 Hypertensive chronic kidney disease with stage 1 through stage 4 chronic kidney disease, or unspecified chronic kidney disease; N18.9 Chronic kidney disease, unspecified; Z79.82 Long term (current) use of aspirin; Z88.8 Allergy status to other drugs, medicaments and biological substances
CPT/HCPCS: 36415; 80048; 85025; 85730; 86850; 99284; A4606; Z7610

== ENCOUNTER 2018-03-03 04:12 | Inpatient (IN) | payer BC, MEDICARE ==
[~2018-03-03] VITALS: Ht 175.3 cm; Wt 72.1 kg
[~2018-03-03 04:12] MED LIST changes: -AMLO5TAB4 PO; +CHOL100044 PO; +CYAN100096 PO; +DEXA4TAB PO; -FERR-58 PO; +FERR325T23 PO; +LENA25CA PO; -LINE600T PO; -MERO500V3 IV
--- NOTE | 2018-03-03 04:25 | NUR ---
TO BED 9 AMBULATORY C/O DIARRHEA, N/V X3. PT AAOX4 NO ACUTE DISTRESS NOTED, RESP EVEN AND UNLABORED, SKIN HOT TO TOUCH, NONDIAPHORETIC. PT DENIES ABDOMINAL PAIN. PLAC EPT ON CARDIAC MONITORING, CONTINUOUS POX. PENDING ER MD ROSS.
--- NOTE | 2018-03-03 04:35 | NUR ---
STARTED SL 18G TO RFA, BLOOD DRAWN AND SENT TO LAB.
[2018-03-03] MEDS ORDERED: ONDANSETRON HCL/PF 4 MG/2 ML VIAL ONE (04:49)
[2018-03-03] MEDS ORDERED: ACETAMINOPHEN ES 500 MG TABLET ONE (04:49)
--- NOTE | 2018-03-03 04:51 | NUR ---
RN AT BEDSIDE TO MEDICATE PT.
[2018-03-03 04:57] LABS: APPEARANCE,URINE CLEAR (CLEAR); BILIRUBIN,URINE NEGATIVE (NEGATIVE); BLOOD, URINE TRACE-INTA Ery/uL (NEGATIVE); COLOR,URINE YELLOW (YELLOW); KETONES,URINE TRACE (NEGATIVE); LEUKOCYTE ESTERASE ,URINE NEGATIVE (NEGATIVE); NITRITE, URINE NEGATIVE (NEGATIVE); PH,URINE 5.5 (5.0-8.0); PROTEIN,URINE 1+ mg/dl (NEGATIVE); UGLUCOSE NEGATIVE (NEGATIVE); UROBILINOGEN,URINE 0.2 EU/dL (0.2)
[2018-03-03 04:59] LABS: HEMATOCRIT 37 % (39-51); HEMOGLOBIN 12.3 g/dL (13.5-17.5); LYMPHOCYTES # (AUTO) 0.2 /CMM (0.8-4.8); LYMPHOCYTES % (AUTO) 1.8 % (20.0-44.0); MEAN CORPUSCULAR HEMOGLOBIN 32 PG (26.0-33.0); MEAN CORPUSCULAR HGB CONC 34 g/dl (31.0-36.0); MEAN CORPUSCULAR VOLUME 95 fL (80-96); MONOCYTES # (AUTO) 0.4 /CMM (0.1-1.30); MONOCYTES % (AUTO) 2.7 % (2.0-12.0); NEUTROPHILS # (AUTO) 13.3 /CMM (1.8-8.9); NEUTROPHILS % (AUTO) 95.5 % (43.0-81.0); PLATELET COUNT (AUTO) 175 /CMM (150-450); RDW COEFFICIENT OF VARIATION 15.9 (11.5-15.0); RED BLOOD CELL COUNT(AUTO) 3.84 MIL/uL (4.5-6.0); WHITE BLOOD COUNT (AUTO) 13.9 K/uL (4.3-11.0)
[2018-03-03] MEDS ORDERED: IV NS 0.9% 1,000 ML BAG IV ONE ×2 (05:00)
[2018-03-03] MEDS ORDERED: ONDANSETRON HCL/PF 4 MG/2 ML VIAL IVP ONE (05:00)
[2018-03-03] MEDS ORDERED: ACETAMINOPHEN ES 500 MG TABLET PO ONE (05:00)
[2018-03-03 05:09] LABS: ALANINE AMINOTRANSFERASE 54 U/L (12-78); ALBUMIN 3.6 g/dL (3.4-5.0); ALKALINE PHOSPHATASE 65 U/L (46-116); ASPARTATE AMINOTRANSFERASE 44 U/L (15-37); BILIRUBIN,DIRECT 0.1 mg/dL (0.0-0.2); BILIRUBIN,TOTAL 0.4 mg/dL (0.2-1.0); CALCIUM, SERUM 8.9 mg/dL (8.5-10.1); CARBON DIOXIDE 24 mmol/L (21-32); CHLORIDE 104 mmol/L (98-107); CREATININE 1.2 mg/dL (0.6-1.3); GLUCOSE 116 mg/dL (74-106); POTASSIUM 3.3 mmol/L (3.5-5.1); SODIUM SERUM 144 mmol/L (136-145); TOTAL PROTEIN, SERUM 7.5 g/dL (6.4-8.2); UREA NITROGEN, BLOOD 31 mg/dL (7-18)
[2018-03-03 05:12] LABS: TROPONIN I < 0.017 ng/mL (0.00-0.056)
--- NOTE | 2018-03-03 05:29 | NUR ---
PT TRANSPORTED TO RADIOLOGY FOR CT ABD/PELVIS.
[2018-03-03 05:34] LABS: BACTERIA,URINE None seen /HPF (None Seen); MUCUS,URINE Many /LPF (None Seen); SQUAMOUS EPITHELIAL CELL,UR Few /HPF (None Seen); WBC,URINE 0-2 /HPF (0-3)
[2018-03-03 05:40] LABS: INR 0.95 (0.87-1.13)
--- NOTE | 2018-03-03 05:42 | NUR ---
PT BACK FROM RADIOLOGY. PENDING CT RESULT.
[2018-03-03] MEDS ORDERED: PIPERACILLIN /TAZOBACTAM 3.375 G in IV D5W 50 ML IV ONE (06:00)
[2018-03-03] MEDS ORDERED: PIPERACILLIN /TAZOBACTAM 3.375 G VIAL IV ONE (06:09)
--- NOTE | 2018-03-03 06:13 | NUR ---
ER MD FLORES AT BEDSIDE TO RE-EVAL PT.
--- NOTE | 2018-03-03 06:21 | NUR ---
DR. VASQUEZ (PT PMD) EXCHANGED CALLEDREGARIG PT ADMISSION.
--- NOTE | 2018-03-03 06:23 | NUR ---
DR. BURK PAGED PER ER MD ORDER FOR ADMISSION.
--- NOTE | 2018-03-03 06:29 | NUR ---
ER MD SPOKE TO DR. BURK REGARDING PT ADMISSION.
[2018-03-03] MEDS ORDERED: VANCOMYCIN 1 GM in IV D5W 250 ML IV ONE (06:30)
--- NOTE | 2018-03-03 06:30 | NUR ---
NURSING ISOTOPE TECHNOLOGIST CALLED FOR M/S BED.
[2018-03-03] MEDS ORDERED: VANCOMYCIN 1 GM VIAL ONE (06:31)
--- NOTE | 2018-03-03 06:59 | NUR ---
REPORT GIVEN TO ROSALINO MARTINEZ.
[2018-03-03] MEDS ORDERED: Z GUARD REMEDY 2 OZ OINT TP PRN (07:00)
[2018-03-03] MEDS ORDERED: VANCOMYCIN 1 GM in IV D5W 250 ML IV SCH (07:00)
[2018-03-03] MEDS ORDERED: MAGNESIUM HYDROXIDE 30 ML UDC PO PRN (07:00)
[2018-03-03] MEDS ORDERED: ONDANSETRON HCL/PF 4 MG/2 ML VIAL IVP PRN (07:00)
[2018-03-03] MEDS ORDERED: MAG HYDROX/AL HYDROX/SIMETH 30 ML UDC PO PRN (07:00)
[2018-03-03] MEDS ORDERED: HYDROCODONE/APAP 5/325MG 1 EACH TABLET PO PRN (07:00)
[2018-03-03] MEDS ORDERED: ZOLPIDEM TARTRATE 5 MG TABLET PO PRN (07:00)
[2018-03-03] MEDS ORDERED: ACETAMINOPHEN 325 MG TABLET PO PRN (07:00)
[2018-03-03] MEDS ORDERED: MORPHINE SULFATE INJ 2 MG/ML DISP.SYRIN IV PRN (07:00)
--- NOTE | 2018-03-03 07:40 | NUR ---
PATIENT TRANSPORTED TO [facility], BEDSIDE REPORT GIVEN TO RNYOBANI.
--- NOTE | 2018-03-03 07:45 | NUR ---
VOCATIONAL REHAB CONSULTANT NOTES ADMITTED PATIENT FROM ER REPORT TAKEN FROM MICHELLE, ALERT AND ORIENTED X 4, NO ACUTE DISTRESS NOTED. BREATHING UNLABORED. NO SOB NOTED, IV ACCESS INTACT AND PATENT. ORIENTED TO THE ROOM. CALL LIGHT PLACED WITHIN REACH. SAFETY MEASURES IN PLACE. BED PLACED IN LOW POSITION AND LOCKED IN PLACE. WILL CONTINUE TO MONITOR ACCORDINGLY.
[2018-03-03] MEDS ORDERED: FEE PK DOSING 1 MIN EA MC ONE (07:50)
[2018-03-03] MEDS ORDERED: BORT3.5V IV (07:52)
[2018-03-03] MEDS ORDERED: AMLO2.5T PO (07:53)
[2018-03-03] MEDS: IV NS 0.9% 1,000 ML IV PRN ×2 (09:43→23:05)
[2018-03-03] MEDS ORDERED: POTASSIUM CHLORIDE 20 MEQ TAB.PRT.SR PO SCH (10:00)
[2018-03-03] MEDS: PIPERACILLIN /TAZOBACTAM 3.375 G in IV NS 0.9% 50 ML IV SCH ×3 (11:53→23:05)
[2018-03-03 16:00] VITALS: BP 110/69
[2018-03-03] MEDS: ATENOLOL 50 MG TABLET PO SCH (17:52)
[2018-03-03] MEDS ORDERED: DEXAMETHASONE 4 MG TABLET PO SCH (18:00)
[2018-03-03] MEDS: VANCOMYCIN 0.75 GM in IV D5W 250 ML IV SCH (18:43)
--- NOTE | 2018-03-03 19:00 | NUR ---
RN CLOSING NOTES PATIENT IN BED, ALERT AND ORIENTED X 4, NO ACUTE DISTRESS NOTED. BREATHING UNLABORED. NO SOB NOTED, IV ACCESS INTACT AND PATENT. NEEDS ATTENDED AND ANTICIPATED. DUE MEDICATIONS GIVEN NO ASE NOTED. CALL LIGHT PLACED WITHIN REACH.SAFETY MEASURES IN PLACE. BED PLACED IN LOW POSITION AND LOCKED IN PLACE. ENDORSED TO NIGHT NURSE FOR CONTINUITY OF CARE.
--- NOTE | 2018-03-03 19:25 | NUR ---
MS RN OPENING NOTE RECEIVE PATIENT AWAKE IN BED, A/O X 4, STABLE NO SOB OR DISTRESS NOTED, CALL LIGHT WITHIN REACH. SAFETY MEASURES IMPLEMENTED. WILL CONTINUE TO MONITOR THROUGHOUT SHIFT.
[2018-03-03 20:00] VITALS: BP 119/72
[2018-03-03] MEDS ORDERED: SIMVASTATIN 20 MG TABLET PO SCH (22:00)
--- NOTE | 2018-03-03 22:00 | NUR ---
SHAHEED HOSPITALIST C/O PT USING CPAP AT NIGHT RELAYED TO [place] SPOKE TO DR. BURK PER DR. FIELD CPAP DURING HS READ BACK AND VERIFIED ORDERS NOTED AND CARRIED OUT
--- NOTE | 2018-03-03 23:20 | NUR ---
PT PLACED ON CPAP PER MD'S ORDERED. NO RESPIRATORY DISTRESS NOTED AT THIS TIME. CPAP PLUGGED INTO RED OUTLET, ALARMS SET AND AUDIBLE. WILL CONTINUE TO MONITOR.
[2018-03-04] VITALS: BP_SYST 108; BP_SYST 119; BP_DIAS 55; BP_DIAS 73
[2018-03-04 04:00] VITALS: BP 115/74
[2018-03-04] MEDS: PIPERACILLIN /TAZOBACTAM 3.375 G in IV NS 0.9% 50 ML IV SCH ×2 (05:03→11:57)
[2018-03-04] MEDS: VANCOMYCIN 0.75 GM in IV D5W 250 ML IV SCH (05:31)
[2018-03-04 06:31] LABS: HEMATOCRIT 31 % (39-51); HEMOGLOBIN 10.2 g/dL (13.5-17.5); LYMPHOCYTES # (AUTO) 0.4 /CMM (0.8-4.8); LYMPHOCYTES % (AUTO) 6.4 % (20.0-44.0); MEAN CORPUSCULAR HEMOGLOBIN 32 PG (26.0-33.0); MEAN CORPUSCULAR HGB CONC 33 g/dl (31.0-36.0); MEAN CORPUSCULAR VOLUME 96 fL (80-96); MONOCYTES % (AUTO) 0.8 % (2.0-12.0); NEUTROPHILS # (AUTO) 5.1 /CMM (1.8-8.9); NEUTROPHILS % (AUTO) 92.8 % (43.0-81.0); PLATELET COUNT (AUTO) 116 /CMM (150-450); RDW COEFFICIENT OF VARIATION 16.1 (11.5-15.0); RED BLOOD CELL COUNT(AUTO) 3.18 MIL/uL (4.5-6.0); WHITE BLOOD COUNT (AUTO) 5.5 K/uL (4.3-11.0)
--- NOTE | 2018-03-04 06:31 | NUR ---
EDGE BANDER HAND CLOSING NOTES PT COMFORTABLY ASLEEP AND EASILY AWAKEN, IN STABLE CONDITION. TOLERATING ROOM AIR 99% AFEBRILE, RESPIRATION EVEN AND UNLABORED. NO COMPLAIN OF PAIN, KEPT CLEAN AND DRY AND COMFORTABLE, SR 71'S. ALL NURSING CARE RENDERED. NEEDS ATTENDED AND ANTICIPATED, FREQUENT VISUAL CHECK DONE FOR SAFETY EVERY 2 HOURS. ON LOW BED AT ALL TIMES TO ENSURE SAFETY. SAFE HAZARD FREE ENVIRONMENT PROVIDED. CALL LIGHT WITHIN EASY TO REACH. WILL ENDORSE NEXT SHIFT CONTINUITY OF CARE.
[2018-03-04 06:50] LABS: CALCIUM, SERUM 7.1 mg/dL (8.5-10.1); MAGNESIUM 1.6 mg/dL (1.8-2.4); POTASSIUM 3.8 mmol/L (3.5-5.1)
--- NOTE | 2018-03-04 07:42 | NUR ---
GLAZING MACHINE OPERATOR NOTES PATIENT RECEIVED RESTING INSIDE ROOM, AWAKE, ALERT AND ORIENTED. VERBALLY RESPONSIVE AND RESPONDS TO VERBAL AND TACTILE STIMULI. BREATHING EVEN AND UNLABORED. NO SOB OR ACUTE DISTRESS NOTED AT THIS TIME. PATIENT DENIES ANY PAIN OR DISCOMFORT. NO CHANGES IN LOC NOTED. IV SITE INTACT, NO SWELLING OR BLEEDING NOTED ON SITE. PATIENT ON TELE MONITOR, NSR. MAINTAINED REVERSE ISOLATION PRECAUTION. WILL CONTINUE TO MONITOR. BED LOCKED AND IN LOW POSITION. BILATERAL UPPER SIDE RAILS UP AND LOCKED. CALL LIGHT WITHIN EASY REACH
[2018-03-04 08:00] VITALS: BP 108/72
[2018-03-04] MEDS ORDERED: AMLODIPINE BESYLATE 2.5 MG TABLET PO SCH (09:00)
[2018-03-04] MEDS ORDERED: MULTIVITAMIN/LUTEIN/MINERALS 1 TAB PO SCH (09:00)
[2018-03-04] MEDS ORDERED: CHOLECALCIFEROL 1,000 UNIT TABLET (VIT D3) PO SCH (09:00)
[2018-03-04] MEDS ORDERED: ASPIRIN EC 81 MG TABLET.DR PO SCH (09:00)
[2018-03-04] MEDS ORDERED: CYANOCOBALAMIN 500 MCG TABLET PO SCH (09:00)
[2018-03-04] MEDS: ATENOLOL 50 MG TABLET PO SCH (09:00)
[2018-03-04] MEDS ORDERED: FERROUS SULFATE (325 MG) 325 MG/TAB TABLET PO SCH (09:00)
[2018-03-04] MEDS: Magnesium 1GM/D5W 100ML PREMIX 100 ML IV SCH ×2 (09:49→10:51)
--- NOTE | 2018-03-04 10:00 | NUR ---
MAGAZINE WORKER NOTES PATIENT SEEN AND EXAMINED BY DR. MCADAMS WITH ORDERS TO CLEAR PATIENT FOR DISCHARGE HOME. ALSO WITH ORDERS TO REPLACE MAGNESIUM WITH 1G/100ML X 200ML. ORDER NOTED AND CARRIED OUT. PATIENT MADE AWARE AND VERBALIZED UNDERSTANDING. WILL CONTINUE TO MONITOR
[2018-03-04 13:00] VITALS: BP 131/91
--- NOTE | 2018-03-04 14:45 | NUR ---
FORM BLOCK MAKER NOTES PATIENT FOR DISCHARGE HOME TODAY. DISCHARGE TEACHING AND EDUCATION GIVEN AND PATIENT VERBALIZED UNDERSTANDING. PATIENT LEFT UNIT AT 1430 IN STABLE CONDITION. BREATHING EVEN AND UNLABORED. NO SOB OR ACUTE DISTRESS. DENIES ANY PAIN OR DISCOMFORT. IV REMOVED WITH MINIMAL BLEEDING NOTED, PRESSURE DRESSING APPLIED. ALL BELONGINGS COMPLETE UPON DISCHARGE, NO REPORT OF MISSING INVENTORY. NO NEW SKIN BREAKDOWN NOTED. PATIENT AFEBRILE, SKIN DRY AND WARM TO TOUCH. PATIENT ASSISTED OUTSIDE FOR DISCHARGE. LEFT BY PRIVATE CARE WITH FAMILY. MD AWARE OF DISCHARGE
== END 2018-03-04 15:30 | disposition home or self-care (01) | DRG 918 ==
LOC: ER 04:14 → MED 07:02 → TELE 11:41
PROVIDERS: ADMIT Internal Medicine; ATTEND Internal Medicine
DX: T61.8X1A Toxic effect of other seafood, accidental (unintentional), initial encounter (principal); C90.00 Multiple myeloma not having achieved remission; K52.1 Toxic gastroenteritis and colitis; N18.3 Chronic kidney disease, stage 3 (moderate); D64.9 Anemia, unspecified; E87.6 Hypokalemia; E86.0 Dehydration; Z79.899 Other long term (current) drug therapy; I25.10 Atherosclerotic heart disease of native coronary artery without angina pectoris; I12.9 Hypertensive chronic kidney disease with stage 1 through stage 4 chronic kidney disease, or unspecified chronic kidney disease; E78.00 Pure hypercholesterolemia, unspecified; Y92.89 Other specified places as the place of occurrence of the external cause
CPT/HCPCS: 36415; 71045-TC; 80048-TC; 80076-TC; 81000-TC; 83605-TC; 83735-TC; 84100-TC; 84484-TC; 85025-TC; 85730-TC; 87040-TC; 87081-TC; 87086-TC; A4216; A4606; J2405; J2543; J3370; J3475; J7030; J7060; J8540; Z7610

== ENCOUNTER 2019-02-28 18:23 | Inpatient (IN) | payer MEDICARE ==
[~2019-02-28] VITALS: Ht 175.3 cm; Wt 69.9 kg
[~2019-02-28 18:23] MED LIST changes: +AMLO2.5T4 PO; +BORT3.5V IV; -LENA25CA PO
--- NOTE | 2019-02-28 18:23 | NUR ---
PT BIBFAMILY FOR SOB SINCE LAST NIGHT, PT AAOX4, PT TO BED 7, NAD NOTED, PT ON MONITOR, VSS, PENDING MD ROSS
[2019-02-28 19:05] LABS: BASOPHILS # (AUTO) 0.2 /CMM (0.0-0.2); BASOPHILS % (AUTO) 2.3 % (0.0-2.0); EOSINOPHILS % (AUTO) 0.9 % (0.0-6.0); HEMATOCRIT 28 % (39-51); HEMOGLOBIN 9.4 g/dL (13.5-17.5); LYMPHOCYTES # (AUTO) 0.3 /CMM (0.8-4.8); LYMPHOCYTES % (AUTO) 3.1 % (20.0-44.0); MEAN CORPUSCULAR HGB CONC 34 g/dl (31.0-36.0); MEAN CORPUSCULAR VOLUME 100 fL (80-96); MONOCYTES # (AUTO) 1.6 /CMM (0.1-1.30); MONOCYTES % (AUTO) 14.9 % (2.0-12.0); NEUTROPHILS # (AUTO) 8.3 /CMM (1.8-8.9); NEUTROPHILS % (AUTO) 78.8 % (43.0-81.0); PLATELET COUNT (AUTO) 130 /CMM (150-450); RED BLOOD CELL COUNT(AUTO) 2.79 MIL/uL (4.5-6.0); WHITE BLOOD COUNT (AUTO) 10.5 K/uL (4.3-11.0)
[2019-02-28 19:10] LABS: CALCIUM, SERUM 8.8 mg/dL (8.5-10.1); CREATININE 1.3 mg/dL (0.6-1.3); POTASSIUM 4.3 mmol/L (3.5-5.1)
[2019-02-28 19:26] LABS: ALBUMIN 2.9 g/dL (3.4-5.0); BILIRUBIN,DIRECT 0.1 mg/dL (0.0-0.2); BILIRUBIN,TOTAL 0.9 mg/dL (0.2-1.0)
[2019-02-28] MEDS ORDERED: IV NS 0.9% 250 ML IV ONE (19:33)
[2019-02-28] MEDS ORDERED: CT SWABBABLE VALVE TRANS SET 1 EA INFUS.SET MC ONE (19:33)
[2019-02-28] MEDS ORDERED: IOHEXOL-350 100 ML VIAL IV ONE (19:33)
[2019-02-28] MEDS ORDERED: diphenhydrAMINE HCL 50 MG/ML VIAL ONE (20:01)
[2019-02-28] MEDS ORDERED: EPINEPHRINE (1:1000) 1 MG/ML AMPUL ONE (20:11)
[2019-02-28] MEDS ORDERED: NITROGLYCERIN PACKET 1 GM PACKET ONE (20:13)
[2019-02-28] MEDS ORDERED: NTG 50 MG/D5W250 ML BOTTL 250 ML IV ONE (20:21)
--- NOTE | 2019-02-28 20:23 | NUR ---
REQUESTED ICU BED FOR THIS PATIENT
[2019-02-28] MEDS ORDERED: LORAZEPAM INJ 2 MG/ML VIAL ONE (20:27)
[2019-02-28] MEDS ORDERED: FUROSEMIDE 20 MG/2 ML VIAL IV ONE (20:30)
[2019-02-28] MEDS ORDERED: NITROGLYCERIN 0.4 MG/TAB BOTTLE SL ONE (20:30)
[2019-02-28] MEDS ORDERED: MIDAZOLAM HCL 5 MG/5ML VIAL ONE (20:36)
[2019-02-28] MEDS ORDERED: PROPOFOL 100 ML ONE (20:36)
--- NOTE | 2019-02-28 20:42 | NUR ---
ICU 254
--- NOTE | 2019-02-28 20:44 | NUR ---
PER DR MACHADO; RSI INITITATED, MEDS GIVEN UNDER DIRECT SUPERVISION OF . ETOMIDATE 20MG IVP GIVEN TO RAC18 ROCERONIUM 100MG IVP TO RAC18
--- NOTE | 2019-02-28 20:45 | NUR ---
2037 ET TUBE PLACED BY MD AND RT AT 2037; 23 AT THE LIP, PLACEMENT CHECKED BY B BREATH SOUNDS, O2 SAT 100. PT COLOR IS PINK, SKIN WARM AND DRY.
--- NOTE | 2019-02-28 20:53 | NUR ---
RT NOTE PT ORALLY INTUBATED WITH 7.5 ETT SECURED @ 23CM LIP LINE. CO2 DETECTOR COLOR CHANGE POSITIVE. CHEST RISE NOTED, EQUAL BILATERAL BREATH SOUNDS. VENT ALARMS ON AND AUDIBLE, VENT PLUGGED IN RED OUTLET, BVM AT [facility]. WILL CONTINUE TO MONITOR. Addendum: 02/28/19 at 2055 by MEAGAN BEARDEN RT Amended: Links added.
[2019-02-28] MEDS ORDERED: ASPIRIN 300 MG/SUPP.RECT RC SCH (21:00)
[2019-02-28 21:18] LABS: BAND % (MANUAL) 2 % (0.0-5.0); EOSINOPHILS % (MANUAL) 1 % (0-4); LYMPHOCYTES % (MANUAL) 9 % (16-48); MONOCYTES % (MANUAL) 17 % (0-11.0); NEUTROPHILS % (MANUAL) 71 (42-76)
[2019-02-28] MEDS ORDERED: FUROSEMIDE 40 MG/4 ML VIAL ONE (21:21)
[2019-02-28] MEDS ORDERED: METOPROLOL TARTRATE INJ 5 MG/5 ML AMPUL ONE (21:21)
[2019-02-28] MEDS ORDERED: ASPIRIN 325 MG TABLET ONE (21:23)
[2019-02-28] MEDS ORDERED: PROPOFOL 100 ML IV PRN (21:30)
[2019-02-28] MEDS ORDERED: LORAZEPAM INJ 2 MG/ML VIAL IV ONE (21:30)
[2019-02-28] MEDS ORDERED: NTG 50 MG/D5W250 ML BOTTL 250 ML IV PRN ×2 (21:30→22:30)
[2019-02-28] MEDS ORDERED: MIDAZOLAM HCL 5 MG/5ML VIAL IV ONE (21:30)
[2019-02-28] MEDS ORDERED: diphenhydrAMINE HCL 50 MG/ML VIAL IV PRN (21:30)
[2019-02-28] MEDS ORDERED: METOPROLOL TARTRATE INJ 5 MG/5 ML AMPUL IVP ONE (21:30)
[2019-02-28] MEDS ORDERED: EPINEPHRINE (1:1000) MDV 30 MG/30ML VIAL SUBCUT ONE (21:30)
--- NOTE | 2019-02-28 21:34 | NUR ---
PER DR CHILDS TO GIVEN EXTRA LASIX 20MG IVP TOTAL OF 40MG IVP
[2019-02-28 21:50] LABS: ABG OXYGEN SATURATION 95.2 % (92.0-98.5); ABG PCO2 58.7 mmHg (35.0-45.0); ABG PO2 101.2 mmHg (75.0-100.0); AaDO2 553.1 mmHg; COHb 0.4 % (0.5-1.5); MetHb 0.8 % (0.0-1.5); O2Hb 94.1 % (94.0-97.0); SITE, ABG Left Radial
--- NOTE | 2019-02-28 21:57 | NUR ---
REPORT GIVEN TO OMERO CHINO FOR [facility]; PT WILL BE TRANSPORTED TO ICU VIA ACLS PROTOCOL
[2019-02-28] MEDS ORDERED: ONDANSETRON HCL/PF 4 MG/2 ML VIAL IVP PRN (22:00)
[2019-02-28] MEDS ORDERED: Z GUARD REMEDY 2 OZ OINT TP PRN (22:00)
[2019-02-28] MEDS ORDERED: ZOLPIDEM TARTRATE 5 MG TABLET PO PRN (22:00)
[2019-02-28] MEDS ORDERED: FUROSEMIDE 20 MG/2 ML VIAL IV SCH (22:00)
[2019-02-28] MEDS ORDERED: MAGNESIUM HYDROXIDE 30 ML UDC PO PRN (22:00)
[2019-02-28] MEDS ORDERED: MAG HYDROX/AL HYDROX/SIMETH 30 ML UDC PO PRN (22:00)
[2019-02-28] MEDS ORDERED: ACETAMINOPHEN 325 MG TABLET PO PRN (22:00)
[2019-02-28] MEDS ORDERED: ASPIRIN 325 MG TABLET NG SCH (22:00)
[2019-02-28] MEDS ORDERED: DEXAMETHASONE 4 MG TABLET PO SCH (22:00)
[2019-02-28 22:22] VITALS: BP 144/108
[2019-02-28] MEDS: PROPOFOL 100 ML IV PRN (22:25)
[2019-02-28 22:30] VITALS: BP 135/104
[2019-02-28 22:40] VITALS: BP 144/108
[2019-02-28 22:45] VITALS: BP 132/96
[2019-02-28] MEDS: FUROSEMIDE 40 MG/4 ML VIAL IV SCH (22:54)
[2019-02-28] MEDS: SIMVASTATIN 20 MG TABLET PO SCH (22:54)
[2019-02-28 23:00] VITALS: BP 132/96
[2019-02-28] MEDS: ENOXAPARIN SODIUM 80 MG/0.8 ML DISP.SYRIN SQ SCH (23:00)
--- NOTE | 2019-02-28 23:10 | NUR ---
RN NOTES ADMITTED PATIENT FROM ER C/C OF SOB AND BLE SWELLING WITH WORSENING FATIGUE UPON WALKING SHORT DISTANCE. DX. W/ PULMONARY EDEMA WITH HISTORY OF MULTIPLE MYELOMA WITH CHEMOTHERAPY 2X/WK, RT. HUMERAL FX. ANEMIA ON CKD. PT IS SEDATED WTIH DIPRIVAN, ORALLY INTUBATED IN ER ETT 7.5 AND 23 CM AT LIP LINE CONNECTED TO VENT BY RT WITH SETTING OF AC 20 TV 500 FIO2 100% PEEP 5 SATURATION 96%. BILATERAL BREATH SOUND CRACKLES SUCTIONED WITH WHITE MOD. AMT OF SECRETION. NGT PRESENT PATENCY CHECKED AND NO RESIDUAL. IV SITE ON RAC G 18 AND RIGHT HAND RECEIVED W/ DIPRIVAN @ 30 MCG/KG/MIN AND NITRO DRIP @ 50 MCG/MIN TITRATED PROTOCOL AND MD ORDERED. AFEBRILE. CONTINUE TO CLOSELY MONITOR, KEPT PT CLEAN AND COMFORTABLE IN BED. EMERGENCY EQUIPMENT AT BEDSIDE. WILL CONTINUE TO MONITOR.
[2019-02-28 23:30] VITALS: BP 94/59
--- NOTE | 2019-02-28 23:32 | NUR ---
ICU/RN-DECADRON PO NOT GIVEN AT THIS TIME, NO AVAILABLE 4 MG TABLET, PH MADE AWARE W/ OPTIONS GIVEN BY SAME TO CHANGE ROUTE FROM PO TO IVP OR WILL ADDRESS IN AM REGARDING 4MG DECADRON PO TOTAL OF 20 MGS TABLET TO BE GIVEN TO PT. PART OF HOME MEDS. DR. ZAMBRANO AWARE AND STATED TO NOTIFY IN AM PH ON DUTY REGARDING THE AVAILABILITY OF THE MED. IN 4MG TABLET AND PH TO DECIDE.
[2019-03-01] VITALS (61 sets, daily range): BP systolic 64–128; BP diastolic 43–85
[2019-03-01] MEDS: PROPOFOL 100 ML IV PRN ×5 (01:03→20:29)
[2019-03-01 04:24] LABS: BASOPHILS % (AUTO) 0.6 % (0.0-2.0); EOSINOPHILS % (AUTO) 0.5 % (0.0-6.0); HEMATOCRIT 31 % (39-51); HEMOGLOBIN 10.3 g/dL (13.5-17.5); LYMPHOCYTES # (AUTO) 0.4 /CMM (0.8-4.8); LYMPHOCYTES % (AUTO) 5.4 % (20.0-44.0); MEAN CORPUSCULAR HGB CONC 34 g/dl (31.0-36.0); MEAN CORPUSCULAR VOLUME 101 fL (80-96); MONOCYTES # (AUTO) 0.6 /CMM (0.1-1.30); MONOCYTES % (AUTO) 6.9 % (2.0-12.0); NEUTROPHILS # (AUTO) 7.1 /CMM (1.8-8.9); NEUTROPHILS % (AUTO) 86.6 % (43.0-81.0); PLATELET COUNT (AUTO) 124 /CMM (150-450); RED BLOOD CELL COUNT(AUTO) 3.05 MIL/uL (4.5-6.0); WHITE BLOOD COUNT (AUTO) 8.2 K/uL (4.3-11.0)
[2019-03-01 04:40] LABS: ALBUMIN 2.6 g/dL (3.4-5.0); BILIRUBIN,TOTAL 1.1 mg/dL (0.2-1.0); CREATININE 1.6 mg/dL (0.6-1.3); MAGNESIUM 2.2 mg/dL (1.8-2.4); PHOSPHORUS 5.3 mg/dL (2.5-4.9); POTASSIUM 4.2 mmol/L (3.5-5.1); TOTAL PROTEIN, SERUM 5.6 g/dL (6.4-8.2)
[2019-03-01 04:45] LABS: CALCIUM, SERUM 8.5 mg/dL (8.5-10.1)
[2019-03-01 04:53] LABS: THYROID STIMULATING HORMONE 1.61 uIU/mL (0.358-3.74)
--- NOTE | 2019-03-01 06:00 | NUR ---
RN NOTES NOTED PATIENT IS WARMTH TO TOUCH TEMPERATURE CHECKED 100.3 AXILLARY. COOLING MEASURES PROVIDED.
--- NOTE | 2019-03-01 06:49 | NUR ---
RN NOTES PATIENT REMAINED SEDATED WITH DIPRIVAN, ORALLY INTUBATED, VENT SETTING TOLERATED WELL. TMAX 100.3 AT 6AM COOLING MEASURES PROVIDED. PT CONTINUE ON NITRO DRIP @ 5MCG/MIN AND DIPRIVAN @ 45 MCG/KG/MIN TOLERATED WELL VSS . SR/ST ON TELE MONITOR. CALLED AND INFORMED DR. CHILDS REGARDING TRENDING UP TROPONIN FROM 1.093 DURING ADMISSION (2AM) 6.42 AND THIS MORNING @ 5AM 9.199 PER MD TO INFORMED POWDER CORE TESTER. INFORMED DR. OKSANA LUEVANO ON THE FLOOR S/E THE PATIENT AT THIS TIME. WILL ENDORSED CONTINUITY OF CARE TO AM NURSE.
--- NOTE | 2019-03-01 07:30 | NUR ---
INITIAL PATIENT REMAINED SEDATED WITH DIPRIVAN , ORALLY INTUBATED, VENT SETTING TOLERATED WELL. COOLING MEASURES CONTINUED. PT CONTINUE ON NITRO DRIP @ 5MCG/MIN AND DIPRIVAN @ 45 MCG/KG/MIN TOLERATED WELL VSS . SR/ST ON TELE MONITOR. MD GANDHI TO CONTINUE NTG DRIP PER STONE SPREADER OPERATOR RN LAST TROPONIN @ 5AM 9.199 PER MD TO INFORMED GENERAL SURGEON. INFORMED DR. OKSANA LUEVANO ON THE FLOOR S/E THE PATIENT AT THIS TIME. WILL CONTINUE TO MONITOR BED IN LOW POSITION..
[2019-03-01] MEDS ORDERED: DEXAMETHASONE 4 MG TABLET PO ONE (08:00)
--- NOTE | 2019-03-01 08:36 | NUR ---
WOUND CARE CONSULT: PT PRESENTS INTUBATED AND IMMOBILE WITH CURRENT MIKAYLA SCORE OF 12. SACRAL AREA IS BONY. RECOMMENDATIONS MADE FOR SKIN PROTECTION. DISCUSSED WITH NURSING STAFF. PT ON DARIO ISOFLEX LOW AIRLOSS BED. WILL SEE PRN.
[2019-03-01] MEDS: CHOLECALCIFEROL 1,000 UNIT TABLET (VIT D3) PO SCH (08:45)
[2019-03-01] MEDS: ASPIRIN EC 81 MG TABLET.DR PO SCH (08:45)
[2019-03-01] MEDS: FUROSEMIDE 40 MG/4 ML VIAL IV SCH ×2 (08:45→16:28)
[2019-03-01] MEDS: CARVEDILOL 6.25 MG TABLET PO SCH ×2 (08:46→20:27)
[2019-03-01 08:54] LABS: ABG BASE EXCESS -0.2 mmol/L; ABG OXYGEN SATURATION 97.5 % (92.0-98.5); ABG PCO2 31.8 mmHg (35.0-45.0); ABG PH 7.476 (7.350-7.450); ABG PO2 115.2 mmHg (75.0-100.0); COHb 0.3 % (0.5-1.5); MetHb 0.9 % (0.0-1.5); O2Hb 96.3 % (94.0-97.0); SITE, ABG Left Radial; VENT MODE, BG AC 20 500 100% +5
[2019-03-01] MEDS: ENOXAPARIN SODIUM 80 MG/0.8 ML DISP.SYRIN SQ SCH ×2 (08:59→20:30)
[2019-03-01] MEDS ORDERED: DOBUTamine 500 MG in IV D5W 210 ML IV PRN (09:00)
[2019-03-01] MEDS ORDERED: FERROUS SULFATE (325 MG) 325 MG/TAB TABLET PO SCH (09:00)
[2019-03-01] MEDS ORDERED: ATENOLOL 50 MG TABLET PO SCH (09:00)
[2019-03-01] MEDS ORDERED: AMLODIPINE BESYLATE 2.5 MG TABLET PO SCH (09:00)
[2019-03-01] MEDS ORDERED: FEE EMEERGENCY 1 MIN EA MC ONE (09:49)
[2019-03-01] MEDS ORDERED: ETOMIDATE 2 MG/ML VIAL IV ONE (09:49)
--- NOTE | 2019-03-01 10:52 | NUR ---
KIRAN MANAGER DELI OF CASE ORDERED PT TO HAVE PICC LINE FOR DOBUTAMINE ADMINISTRATION CONSENT SIGNED AND PT ON DOBUTAMINE BLOOD PRESSURE MONITORED ALSO CONSENT SIGNED FOR MEDICAL RECORDS FROM ONCOLOGIST AND FAX SENT TO OFFICE OF DR RODRIGUEZ SPOKE WITH ROSENDO PRODUCTION ASSEMBLY OPERATOR THAT FAX WAS SENT AND RECORDS WILL BE SENT BACK TO UNIT . FAX DR FERNANDEZ
[2019-03-01] MEDS ORDERED: CEFTRIAXONE 1 G in IV D5W 50 ML IV SCH (12:00)
[2019-03-01] MEDS: AZITHROMYCIN 500 MG in IV D5W 250 ML IV SCH (12:42)
--- NOTE | 2019-03-01 12:45 | NUR ---
SPOKE WITH JOHANNE BECK TO CLARIFY DOBUTAMINE ORDERS. PER HOSPITALIST-TITRATE DOBUTAMINE TO KEEP SBP>100 . MAY GO UP TO 20 MCG/KG/MIN PER PROTOCOL.
--- NOTE | 2019-03-01 16:04 | NUR ---
LAB CALLED FOR URINE CULTURE SCIENTIFIC SOFTWARE ENGINEER SAMPLE OBTAINED
[2019-03-01 17:23] LABS: APPEARANCE,URINE CLEAR (CLEAR); BILIRUBIN,URINE NEGATIVE (NEGATIVE); BLOOD, URINE NEGATIVE Ery/uL (NEGATIVE); COLOR,URINE YELLOW (YELLOW); KETONES,URINE NEGATIVE (NEGATIVE); LEUKOCYTE ESTERASE ,URINE NEGATIVE (NEGATIVE); NITRITE, URINE NEGATIVE (NEGATIVE); PH,URINE 5.5 (5.0-8.0); PROTEIN,URINE 1+ mg/dl (NEGATIVE); UGLUCOSE NEGATIVE (NEGATIVE); UROBILINOGEN,URINE 0.2 EU/dL (0.2)
[2019-03-01 17:27] LABS: RBC,URINE NONE SEEN /HPF (0-2)
[2019-03-01 17:28] LABS: BACTERIA,URINE None seen /HPF (None Seen); SQUAMOUS EPITHELIAL CELL,UR Rare /HPF (None Seen); WBC,URINE 0-2 /HPF (0-3)
[2019-03-01 17:31] LABS: CREATININE, URINE 100.6 MG/DL (30.0-125.0)
[2019-03-01] MEDS ORDERED: PIPERACILLIN /TAZOBACTAM 3.375 G in IV D5W 50 ML IV ONE (18:00)
--- NOTE | 2019-03-01 18:02 | NUR ---
CLOSING PATIENT REMAINED SEDATED WITH DIPRIVAN, ORALLY INTUBATED, VENT SETTING TOLERATED WELL. TEMPERATURE STABLE . PT CONTINUE ON DOBUTAMINE DRIP @ 8 MCG/MIN AND DIPRIVAN @ 35 MCG/KG/MIN TOLERATED WELL VSS . SR/ST ON TELE MONITOR. INFORMED DR. OKSANA LUEVANO OF METAL EXPEDITER PROGRESS AND HE EVALUATED THE PATIENT THIS AM. DU DRAINING TO GRAVITY POSITIVE RESPONSE TO LASIX PUSH FAMILY REMAIN AT BEDSIDE ALL SHIFT PICC LINE INSERTED TODAY IN RANDELL TRIPLE LUMEN DOBUTAMINE AND DIPRIVAN RUNNING THROUGH THIS LINE.WILL ENDORSED CONTINUITY OF CARE TO PM NURSE.
[2019-03-01] MEDS ORDERED: HYDROCORTISONE SOD SUCCINATE 100 MG/2 ML VIAL IV SCH (19:00)
[2019-03-01] MEDS: HYDROCORTISONE SOD SUCCINATE 100 MG/2 ML VIAL IV SCH (20:21)
[2019-03-01] MEDS: DOBUTamine 500 MG in IV D5W 210 ML IV PRN (20:25)
[2019-03-01] MEDS: SIMVASTATIN 20 MG TABLET PO SCH (22:24)
[2019-03-01] MEDS: PIPERACILLIN /TAZOBACTAM 3.375 G in IV D5W 100 ML IV SCH (23:46)
[2019-03-02] VITALS (80 sets, daily range): BP systolic 82–151; BP diastolic 51–88
[2019-03-02] MEDS: PROPOFOL 100 ML IV PRN ×2 (00:59→09:22)
--- NOTE | 2019-03-02 01:30 | NUR ---
OVEN BUILDER: REMAINS SEDATED ON DIPRIVAN DRIP AT 30MCG/KG/MIN, ABLE TO OPEN EYES WHEN TOUCHED/CALLED BY NAME AND FOLLOW SIMPLE COMMANDS. TOLERATING VENT SETTINGS ORDERED. CONTINUE ON DOBUTAMINE DRIP AT 8MCG/KG/MIN FOR BP SUPPORT. AFEBRILE. CARDIAC RHYTHM REMAINS LABILE (SINUS TACH IN THE 140s UNSUSTAINED TO SINUS TREVER. IN THE 40s AND BACK TO NSR). BILAT. SOFT WRIST RESTRAINTS IN PLACE FOR EPISODES OF TRYING TO REACH TUBINGS. SKIN AND CIRCULATION WNL. SAFETY PRECAUTION NOTED AT ALL TIMES. GRAND DAUGHTER AT BEDSIDE.
[2019-03-02 04:37] LABS: BASOPHILS % (AUTO) 0.3 % (0.0-2.0); HEMATOCRIT 24 % (39-51); HEMOGLOBIN 8.3 g/dL (13.5-17.5); LYMPHOCYTES # (AUTO) 0.3 /CMM (0.8-4.8); MEAN CORPUSCULAR HGB CONC 34 g/dl (31.0-36.0); MEAN CORPUSCULAR VOLUME 99 fL (80-96); MONOCYTES # (AUTO) 0.5 /CMM (0.1-1.30); MONOCYTES % (AUTO) 4.4 % (2.0-12.0); NEUTROPHILS # (AUTO) 10.5 /CMM (1.8-8.9); NEUTROPHILS % (AUTO) 92.3 % (43.0-81.0); PLATELET COUNT (AUTO) 70 /CMM (150-450); RED BLOOD CELL COUNT(AUTO) 2.47 MIL/uL (4.5-6.0); WHITE BLOOD COUNT (AUTO) 11.4 K/uL (4.3-11.0)
[2019-03-02 04:53] LABS: ALBUMIN 2.2 g/dL (3.4-5.0); BILIRUBIN,TOTAL 0.9 mg/dL (0.2-1.0); CALCIUM, SERUM 8.2 mg/dL (8.5-10.1); CREATININE 1.6 mg/dL (0.6-1.3); MAGNESIUM 2.7 mg/dL (1.8-2.4); PHOSPHORUS 6.7 mg/dL (2.5-4.9); POTASSIUM 3.8 mmol/L (3.5-5.1); TOTAL PROTEIN, SERUM 5.4 g/dL (6.4-8.2)
[2019-03-02 05:35] LABS: BAND % (MANUAL) 8 % (0.0-5.0); LYMPHOCYTES % (MANUAL) 2 % (16-48); METAMYELOCYTES % 1 % (0-0); MONOCYTES % (MANUAL) 5 % (0-11.0); NEUTROPHILS % (MANUAL) 84 (42-76)
--- NOTE | 2019-03-02 06:20 | NUR ---
INSURANCE ACTUARY: PT SLIGHTLY SEDATED ON DIPRIVAN DRIP AT 20MCG/KG/MIN. OPENS EYES WHEN CALLED BY NAME, ABLE TO FOLLOW COMMANDS. NO ACUTE DISTRESS, NO C/O PAIN OR EVIDENCE OF DISCOMFORT. DOBUTAMINE DRIP NOW AT 2MCG/KG/MIN. LATEST TROPONIN LEVEL AT 2.604 FROM 9.199. SAFETY PRECAUTION NOTED AT ALL TIMES.
[2019-03-02 08:08] LABS: ABG BASE EXCESS -0.5 mmol/L; ABG PCO2 32.6 mmHg (35.0-45.0); ABG PH 7.464 (7.350-7.450); ABG PO2 272.8 mmHg (75.0-100.0); AaDO2 83.1 mmHg; COHb 0.4 % (0.5-1.5); MetHb 0.6 % (0.0-1.5); SITE, ABG Right Radial; VENT MODE, BG AC 20 500 55% +5
[2019-03-02] MEDS: ASPIRIN EC 81 MG TABLET.DR PO SCH (08:50)
[2019-03-02] MEDS: FUROSEMIDE 40 MG/4 ML VIAL IV SCH ×2 (08:50→16:51)
[2019-03-02] MEDS: CHOLECALCIFEROL 1,000 UNIT TABLET (VIT D3) PO SCH (08:50)
[2019-03-02] MEDS: HYDROCORTISONE SOD SUCCINATE 100 MG/2 ML VIAL IV SCH ×3 (08:50→16:51)
[2019-03-02] MEDS: PIPERACILLIN /TAZOBACTAM 3.375 G in IV D5W 100 ML IV SCH ×3 (08:53→23:15)
[2019-03-02] MEDS: DOBUTamine 500 MG in IV D5W 210 ML IV PRN (10:32)
--- NOTE | 2019-03-02 11:01 | NUR ---
rn notes 0730-received patient from rn. patient remaisn orally intubated on ac mode. on dobutrex drip at 2 mcg/kg/min for support. CVP reading earlier is [address] Calvo. also on diprivan drip, patient opens eyes to voice when name called out loud. 0900-her daughter irma visits, updated her of patient status. 1000-patient seen by Dr. Rivera, he spoke to patient and his daughter and discussed plan of care. patient.monitor patient status.
[2019-03-02 11:10] LABS: D-DIMER 0.19 mg/L(FEU (0.17-0.50)
[2019-03-02] MEDS: AZITHROMYCIN 500 MG in IV D5W 250 ML IV SCH (12:43)
--- NOTE | 2019-03-02 13:07 | NUR ---
PT RECEIVED INTUBATED ON MECHANICAL VENT W/ NOTED SETTINGS PER MD. VENT ALARMS CHECKED AND AUDIBLE. VENT IN RED OUTLET, AMBUBAG AT BEDSIDE. BREATH SOUNDS EQUAL, ETT SECURED W/ ANCHOFAST, CLEAN AND DRY. PT PLACED ON CPAP PER EFE. NO RESP DISTRESS NOTED, PT AWAKE, FOLLOWS COMMANDS. PLAN IS TO CONTINUE CARE UNDER CURRENT MD ORDERS AND MONITOR FOR CHANGES. Addendum: 03/02/19 at 1308 by MIRANDA BUCKLEY RT Amended: Links added.
--- NOTE | 2019-03-02 18:45 | NUR ---
RN NOTES 1400-PATIENT ON CPAP, INSTRUCTED BY DR. WILKS EARLIER. PATIENT OFF PROPOFOL DRIP.HE DENIES PAIN.BP WITHIN RANGE. ADEQUATE DIURESIS WITH LASIX, DOBUTAMINE AT 2 MCG. CONITNUE MONITOR PATIENT STATUS 1600-PATIENT AFEBRILE, ASKED TO CHECK TEMP X2 PATIENT SKIN IS WARM. 1800-DOBUTAMINE OFF, MONITOR BP AFTER IT IS TURNED OFF.PATIENT COMFORTABLE NO DISTRESS NOTED.
--- NOTE | 2019-03-02 19:22 | NUR ---
RN NOTES OFF DOBUTAMINE DRIP; REMAISN ON CPAP, NO SIGN OF PAIN. REPORT GIVEN TO RN FOR FURTHER CARE
--- NOTE | 2019-03-02 19:40 | NUR ---
ICU/RECREATION THERAPIST RECEIVED REPORT FROM DAY NURSE. SEE FLOWSHEET FOR ASSESSMENT, ALONG WITH SKIN ISSUES THAT PT MAY HAVE ALONG WITH THE INTERVENTIONS TO EACH OF THESE. PT WAS TURNED AND REPOSITIONED FOR COMFORT AND CARE. WILL CONTINUE TO MONITOR THIS PT. NO ACUTE DISTRESS SEEN AT THIS TIME.
[2019-03-02] MEDS ORDERED: HYDROCORTISONE SOD SUCCINATE 100 MG/2 ML VIAL IV SCH (20:13)
[2019-03-02] MEDS: DOXYCYCLINE HYCLATE (100 MG) 100 MG TABLET PO SCH (20:32)
[2019-03-02] MEDS: SIMVASTATIN 20 MG TABLET PO SCH (20:32)
[2019-03-02] MEDS: MUPIROCIN OINT 2% 22 GM TUBE SCH (20:32)
--- NOTE | 2019-03-02 20:34 | NUR ---
RECEIVE PT INTUBATED 7.5 ETT SECURED AT 23CM AT THE LIP. PT IS AWAKE AND ALERT, TOLERATING VENT SETTINGS CPAP. FAMILY AT BEDSIDE. VENT ALARMS SET AND AUDIBLE. AMBU BAG AT BEDSIDE. VENT PLUGGED INTO RED OUTLET. WILL CONTINUE TO MONITOR. Addendum: 03/02/19 at 2035 by ELEAZAR MELENDEZ RT Amended: Links added.
--- NOTE | 2019-03-02 22:05 | NUR ---
ICU/SUGAR REFINER PT WAS TURNED AND REPOSITIONED AFTER STEVEN CARE WAS GIVEN. NO ACUTE DISTRESS SEEN AT THIS TIME. PT APPEARS TO BE RESTING COMFORTABLE. FAMILY REMAINS AT BEDSIDE. GOOD FAMILY SUPPORT. PT REMAINS CALM, NO SEDATION IS ON DESPITE PT IS ORALLY INTUBATED.
[2019-03-03] VITALS (34 sets, daily range): BP systolic 118–145; BP diastolic 71–100
--- NOTE | 2019-03-03 01:15 | NUR ---
ICU/MANAGER MERCHANDISE PT WAS TURNED AND REPOSITIONED AFTER STEVEN CARE WAS GIVEN. NO ACUTE DISTRESS SEEN AT THIS TIME. PT APPEARS TO BE RESTING COMFORTABLE. FAMILY REMAINS AT BEDSIDE. GOOD FAMILY SUPPORT. PT REMAINS CALM, NO SEDATION IS ON DESPITE PT IS ORALLY INTUBATED.
--- NOTE | 2019-03-03 02:45 | NUR ---
ICU/PAINT TESTER PT WAS GIVEN AM CARE, ALONG WITH ORAL CARE. PT REMAINS ON CURRENT VENT SETTING, WITH SATURATION AT 100%PT WAS TURNED AND REPOSITIONED FOR COMFORT AND CARE. WILL CONTINUE TO MONITOR THIS PT.
--- NOTE | 2019-03-03 04:30 | NUR ---
ICU/BONER MEAT AM LABS AND CHEST XRAY WAS DONE.AWAIT FOR ANY ABNORMAL VALUES.
[2019-03-03 04:33] LABS: BASOPHILS % (AUTO) 0.2 % (0.0-2.0); HEMATOCRIT 23 % (39-51); HEMOGLOBIN 7.5 g/dL (13.5-17.5); LYMPHOCYTES # (AUTO) 0.3 /CMM (0.8-4.8); LYMPHOCYTES % (AUTO) 2.3 % (20.0-44.0); MEAN CORPUSCULAR HGB CONC 33 g/dl (31.0-36.0); MEAN CORPUSCULAR VOLUME 99 fL (80-96); MONOCYTES # (AUTO) 0.4 /CMM (0.1-1.30); MONOCYTES % (AUTO) 3.5 % (2.0-12.0); WHITE BLOOD COUNT (AUTO) 11.7 K/uL (4.3-11.0)
[2019-03-03 04:40] LABS: PLATELET COUNT (AUTO) 48 /CMM (150-450)
[2019-03-03 04:43] LABS: LYMPHOCYTES % (MANUAL) 3 % (16-48); MONOCYTES % (MANUAL) 4 % (0-11.0); NEUTROPHILS % (MANUAL) 93 (42-76)
[2019-03-03 04:44] LABS: BASOPHILS % (MANUAL) 0 % (0.0-2.0); EOSINOPHILS % (MANUAL) 0 % (0-4)
[2019-03-03 04:51] LABS: ALBUMIN 2.2 g/dL (3.4-5.0); CALCIUM, SERUM 8.2 mg/dL (8.5-10.1); CREATININE 1.5 mg/dL (0.6-1.3); MAGNESIUM 2.8 mg/dL (1.8-2.4); PHOSPHORUS 5.2 mg/dL (2.5-4.9); POTASSIUM 3.5 mmol/L (3.5-5.1); TOTAL PROTEIN, SERUM 5.3 g/dL (6.4-8.2)
--- NOTE | 2019-03-03 06:18 | NUR ---
ICU/MODELING DIRECTOR CALLED ABOUT CRITICAL LAB VALUE OF PLAT. 48, YESTERDAY'S COUNT WAS 63. 'S RESPONDS WAS THAT THERE IS NO NEW ORDERS.
[2019-03-03] MEDS: PIPERACILLIN /TAZOBACTAM 3.375 G in IV D5W 100 ML IV SCH (07:58)
[2019-03-03] MEDS: FUROSEMIDE 40 MG/4 ML VIAL IV SCH ×2 (08:31→17:38)
[2019-03-03] MEDS: ASPIRIN EC 81 MG TABLET.DR PO SCH (08:31)
[2019-03-03] MEDS: CHOLECALCIFEROL 1,000 UNIT TABLET (VIT D3) PO SCH (08:31)
[2019-03-03] MEDS: HYDROCORTISONE SOD SUCCINATE 100 MG/2 ML VIAL IV SCH ×3 (08:31→17:38)
[2019-03-03] MEDS: DOXYCYCLINE HYCLATE (100 MG) 100 MG TABLET PO SCH ×2 (08:31→21:21)
[2019-03-03] MEDS: MUPIROCIN OINT 2% 22 GM TUBE SCH ×2 (09:48→21:22)
[2019-03-03] MEDS ORDERED: PANTOPRAZOLE 40 MG VIAL IV SCH (10:00)
[2019-03-03 10:49] LABS: ABG BASE EXCESS 3.7 mmol/L; ABG OXYGEN SATURATION 96.2 % (92.0-98.5); ABG PCO2 37.9 mmHg (35.0-45.0); ABG PH 7.477 (7.350-7.450); ABG PO2 94.8 mmHg (75.0-100.0); AaDO2 74.6 mmHg; COHb 0.7 % (0.5-1.5); MetHb 0.8 % (0.0-1.5); O2Hb 94.8 % (94.0-97.0); PEEP,BG 5 cm H2O; SITE, ABG Left Radial
[2019-03-03] MEDS ORDERED: NEXIUM 40 MG VIAL IV SCH (11:00)
[2019-03-03] MEDS ORDERED: DC PROPOFOL WHEN EXTUBATED XX PRN (11:30)
--- NOTE | 2019-03-03 11:44 | NUR ---
rn notes 0730-received patient from rn. patient orally intubated. on CPAP mode, tolerating well. denies SOB when asked.BP within acceptable range without pressor.no sign of bleeding noted on the iv,IFC sitesd. 0900-seen by Dr. Umesh MD updated of patient status, cvp readings. 1030-seen by ILIR Allen, updated him of patient labs,patient status.seen by Dr. Miguel MD updated of patient status. MD spoke to patient family 1115- blood transfusion started, no immediate adverse reactions noted. patient laso extu bated as ordered. denies pain. encouraged deep breathing. continue monitor patient status.
[2019-03-03] MEDS: AZITHROMYCIN 500 MG in IV D5W 250 ML IV SCH (12:36)
[2019-03-03 12:47] LABS: D-DIMER 0.45 mg/L(FEU (0.17-0.50)
--- NOTE | 2019-03-03 18:09 | NUR ---
RT END OF THE SHIFT REPORT, PT. 68 Y OLD MALE REC. ORALLY INTUBATED @ 0700 AM ETT#7.5 @23 CM LIP LINE ON [facility]. VENTILATOR WITH NOTED CPAP SETTINGS, ALARMS ARE SET AND FUNCTIONAL. EQUAL CHEST RISE NOTED AND NO DISTRESS. PT. AWAKE AND RESPONSIVE. POST ABG @ [address] WILKS ORDER AND PLACED ON O2 4L/MIN N/C. NO STRIDOR NOTED AND SAUL. WELL NO DISTRESS NOTED T/O SHIFT. NIGHT BIPAP ORDERED BY DR. WILKS. REPORT WILL PASS TO PM SHIFT. Addendum: 03/03/19 at 1813 by WILLIAM CARVALHO RT Amended: Links added.
--- NOTE | 2019-03-03 18:54 | NUR ---
rn notes 1400- patient tolerated ice chips, thin liquids. aspiration precautions observed. BP within range, saturation up to 100% on 4LPM/NC. 1600-afebrile. family at bedside. no sign of pain. 1800-tolerating food consistency. aspiration precautions observed.VS within acceptable range
--- NOTE | 2019-03-03 19:18 | NUR ---
rn notes patient resting, report given to rn for further care
[2019-03-03] MEDS: SIMVASTATIN 20 MG TABLET PO SCH (21:21)
--- NOTE | 2019-03-03 23:19 | NUR ---
report passed on to brenda rn all questions answered pt condition remains stable without incident
[2019-03-04] VITALS (18 sets, daily range): BP systolic 125–144; BP diastolic 69–79
--- NOTE | 2019-03-04 | NUR ---
PICKLE PUMPER NOTES PATIENT PLACED ON CPAP BY RT RODRIGUEZ
[2019-03-04 01:39] LABS: OCCULT BLOOD STOOL POSITIVE (NEGATIVE)
--- NOTE | 2019-03-04 04:00 | NUR ---
AUTOMOTIVE PRODUCTION WORKER NOTES OFFERED BED BATH, PATIENT REFUSED AT THIS TIME. PATIENT REMAINS ON CPAP, TOLERATING WELL. WILL CONTINUE CLOSE MONITORING
[2019-03-04 04:42] LABS: BASOPHILS % (AUTO) 0.2 % (0.0-2.0); HEMATOCRIT 25 % (39-51); HEMOGLOBIN 8.6 g/dL (13.5-17.5); LYMPHOCYTES # (AUTO) 0.2 /CMM (0.8-4.8); LYMPHOCYTES % (AUTO) 2.1 % (20.0-44.0); MEAN CORPUSCULAR HGB CONC 34 g/dl (31.0-36.0); MEAN CORPUSCULAR VOLUME 98 fL (80-96); MONOCYTES # (AUTO) 0.6 /CMM (0.1-1.30); NEUTROPHILS # (AUTO) 10.4 /CMM (1.8-8.9); NEUTROPHILS % (AUTO) 92.7 % (43.0-81.0); PLATELET COUNT (AUTO) 57 /CMM (150-450); RED BLOOD CELL COUNT(AUTO) 2.59 MIL/uL (4.5-6.0); WHITE BLOOD COUNT (AUTO) 11.3 K/uL (4.3-11.0)
[2019-03-04 04:54] LABS: CALCIUM, SERUM 7.9 mg/dL (8.5-10.1); POTASSIUM 3.1 mmol/L (3.5-5.1)
--- NOTE | 2019-03-04 05:56 | NUR ---
PT TAKEN OFF NOC BIPAP AND PLACED BACK ON 4L NC. RN NOTIFIED.
[2019-03-04 06:02] LABS: LYMPHOCYTES % (MANUAL) 2 % (16-48); MONOCYTES % (MANUAL) 3 % (0-11.0); NEUTROPHILS % (MANUAL) 95 (42-76)
[2019-03-04] MEDS: POTASSIUM CHLORIDE 20 MEQ TAB.PRT.SR PO SCH ×3 (08:01→10:14)
[2019-03-04] MEDS: FUROSEMIDE 40 MG/4 ML VIAL IV SCH ×2 (08:29→17:50)
[2019-03-04] MEDS: CHOLECALCIFEROL 1,000 UNIT TABLET (VIT D3) PO SCH (08:30)
[2019-03-04] MEDS: MUPIROCIN OINT 2% 22 GM TUBE SCH ×2 (08:31→21:00)
[2019-03-04] MEDS: ASPIRIN EC 81 MG TABLET.DR PO SCH (08:31)
[2019-03-04] MEDS: HYDROCORTISONE SOD SUCCINATE 100 MG/2 ML VIAL IV SCH ×2 (08:31→17:50)
[2019-03-04] MEDS: HYDROCODONE/APAP 5/325MG 1 EACH TABLET PO PRN ×2 (08:31→14:39)
[2019-03-04] MEDS: DOXYCYCLINE HYCLATE (100 MG) 100 MG TABLET PO SCH ×2 (08:32→21:36)
[2019-03-04] MEDS: SUCRALFATE 1 G TABLET PO SCH ×3 (12:00→21:40)
--- NOTE | 2019-03-04 14:45 | NUR ---
Pt received from outgoing RN this morning in bed,alert and oritented,no s/s of respiratory distress in 4l NC.Pt seen by md no acute changes from yesterday extubation.Pt odom catheter dcd per MD order.Pt central line intact ,no s/s of infection noted.Pt being downgrad to tele satu,report will be given to Tangela RN in [place] will follow up for continous of care.
[2019-03-04 15:07] LABS: *SPE A/G RATIO 1.1 (0.7-1.7); *SPE ALBUMIN 2.5 g/dL (2.9-4.4); *SPE ALPHA-1-GLOBULIN 0.4 g/dL (0.0-0.4); *SPE ALPHA-2-GLOBULIN 0.7 g/dL (0.4-1.0); *SPE BETA GLOBULIN 0.8 g/dL (0.7-1.3); *SPE GLOBULIN, TOTAL 2.3 g/dL (2.2-3.9); *SPE M-SPIKE Not Observed g/dL (Not Observed); *SPEGAMMA GLOBULIN 0.4 g/dL (0.4-1.8)
--- NOTE | 2019-03-04 17:15 | NUR ---
RN NOTES RECEIVED PATIENT BY BED FORM ICU. PATIENT ON NASAL CANNULA WITH 2 LPM, NOT ANY FORM OF DISTRESS, BREATHING EVEN AND UNLABORED. PATIENT ABLE TO MAKE NEEDS KNOWN. NO COMPLAINTS OF PAIN OF ANY KIND. IV LINE NOTED ON THE RANDELL MIDLINE AND RHAND G 18: IN PLACE AND INTACT, PATENT ON FLUSHING. PATIENT MADE COMFORTABLE IN BED, TELEMONITOR ATTACHED. [PATIENT ORIENTED TO FLOOR AND USE OF CALL LIGHT. SAFETY MEASURES OBSERVED AND MAINTAINED. CALL LIGHT PLACED WITHIN REACH.WILL CONTINUE TO MONITOR PATIENT
[2019-03-04 18:31] LABS: HEMOGLOBIN 10.2 g/dL (13.5-17.5)
--- NOTE | 2019-03-04 18:57 | NUR ---
pt transfered to [facility],no acute distress noted. Addendum: 03/04/19 at 1901 by DALIA PAREDES RN Amended: Links added.
--- NOTE | 2019-03-04 20:00 | NUR ---
Rn initial notes Received pt in bed,alert and oriented x4,family at bed side.No s/s of respiratory distress in 4l NC. L UA picc ,no s/s of infection noted. SR on tele monitor. All safety precautions in place. Will cont to monitor.
[2019-03-04] MEDS: SIMVASTATIN 20 MG TABLET PO SCH (21:36)
[2019-03-04] MEDS: NEXIUM 40 MG VIAL IV SCH (23:15)
[2019-03-05] VITALS: BP 147/89
[2019-03-05 04:00] VITALS: BP 147/89
[2019-03-05 06:59] LABS: BASOPHILS % (AUTO) 0.4 % (0.0-2.0); EOSINOPHILS % (AUTO) 4.5 % (0.0-6.0); HEMATOCRIT 30 % (39-51); HEMOGLOBIN 10.1 g/dL (13.5-17.5); LYMPHOCYTES # (AUTO) 0.6 /CMM (0.8-4.8); LYMPHOCYTES % (AUTO) 6.4 % (20.0-44.0); MEAN CORPUSCULAR HGB CONC 34 g/dl (31.0-36.0); MEAN CORPUSCULAR VOLUME 98 fL (80-96); MONOCYTES # (AUTO) 1.2 /CMM (0.1-1.30); NEUTROPHILS # (AUTO) 6.8 /CMM (1.8-8.9); NEUTROPHILS % (AUTO) 75.7 % (43.0-81.0); PLATELET COUNT (AUTO) 90 /CMM (150-450); RED BLOOD CELL COUNT(AUTO) 3.02 MIL/uL (4.5-6.0); WHITE BLOOD COUNT (AUTO) 8.9 K/uL (4.3-11.0)
[2019-03-05 07:02] LABS: CALCIUM, SERUM 7.9 mg/dL (8.5-10.1); CREATININE 0.9 mg/dL (0.6-1.3); POTASSIUM 3.3 mmol/L (3.5-5.1)
--- NOTE | 2019-03-05 07:05 | NUR ---
RN CLOSING NOTES' NO ACUTE CHANGES OVERNIGHT. ALL NURSING NEEDS ATTENDED AND MET. CALL LIGHT WITHIN REACH. SAFETY MEASURES IN PLACE AT ALL TIME. PT USED CPAP OVERNIGHT. WILL ENDORSE TO AM RN.
--- NOTE | 2019-03-05 07:30 | NUR ---
RN NOTES RECEIVED PATIENT A/A/OX4. ABLE TO MAKE NEEDS KNOWN. PATIENT ON NASAL CANNULA WITH 2 LPM, NOT ANY FORM OF DISTRESS, BREATHING EVEN AND UNLABORED. NO COMPLAINTS OF PAIN OF ANY KIND. SINUS RHYTHM ON THE MONITOR WITH HR ON THE 90'S. IV LINE NOTED ON THE RANDELL MIDLINE AND RHAND G 18: IN PLACE AND INTACT, PATENT ON FLUSHING. ENCOURAGE TO VERBALIZED NEED AND AND CONCERNS. SAFETY MEASURES OBSERVED AND MAINTAINED. CALL LIGHT PLACED WITHIN REACH.WILL CONTINUE TO MONITOR AND ANTICIPATE NEEDS
[2019-03-05 08:00] VITALS: BP_SYST 147; BP_SYST 157; BP_DIAS 89; BP_DIAS 90
[2019-03-05] MEDS: SUCRALFATE 1 G TABLET PO SCH ×4 (08:28→21:23)
[2019-03-05] MEDS: FUROSEMIDE 40 MG/4 ML VIAL IV SCH ×2 (08:28→16:59)
[2019-03-05] MEDS: CHOLECALCIFEROL 1,000 UNIT TABLET (VIT D3) PO SCH (08:29)
[2019-03-05] MEDS: HYDROCORTISONE SOD SUCCINATE 100 MG/2 ML VIAL IV SCH ×2 (08:29→16:59)
[2019-03-05] MEDS: DOXYCYCLINE HYCLATE (100 MG) 100 MG TABLET PO SCH ×2 (08:29→21:23)
[2019-03-05] MEDS: ASPIRIN EC 81 MG TABLET.DR PO SCH (08:29)
[2019-03-05] MEDS: NEXIUM 40 MG VIAL IV SCH ×2 (08:32→21:22)
--- NOTE | 2019-03-05 10:00 | NUR ---
WOUND CARE CONSULT: RECEIVED WOUND CONSULT. PT PRESENTS WITH INTACT SKIN AND IS AMBULATORY AND CONTINENT. WILL SEE PRN.
--- NOTE | 2019-03-05 10:15 | NUR ---
RN NOTES PATIENT WENT TO CTA OF THE HEART
[2019-03-05] MEDS ORDERED: IV NS 0.9% 500 ML IV ONE (10:30)
[2019-03-05] MEDS ORDERED: NITROGLYCERIN 0.4 MG/TAB BOTTLE SL ONE (10:30)
[2019-03-05] MEDS ORDERED: METOPROLOL TARTRATE INJ 5 MG/5 ML AMPUL IVP ONE (10:30)
[2019-03-05] MEDS ORDERED: IV NS 0.9% 250 ML IV ONE (10:44)
[2019-03-05] MEDS ORDERED: IOHEXOL-350 100 ML VIAL IV ONE (10:44)
[2019-03-05] MEDS ORDERED: CT SWABBABLE VALVE TRANS SET 1 EA INFUS.SET MC ONE (10:44)
[2019-03-05] MEDS ORDERED: METOPROLOL TARTRATE INJ 5 MG/5 ML AMPUL ONE ×2 (11:07→11:10)
[2019-03-05] MEDS ORDERED: POTASSIUM CHLORIDE 20 MEQ TAB.PRT.SR PO SCH (12:00)
[2019-03-05] MEDS: MUPIROCIN OINT 2% 22 GM TUBE SCH ×2 (12:26→21:22)
[2019-03-05] MEDS: CARVEDILOL 6.25 MG TABLET PO SCH ×2 (12:32→21:23)
[2019-03-05 14:09] LABS: PTH, INTACT 58 pg/mL (15-65)
[2019-03-05 16:00] VITALS: BP_SYST 138; BP_SYST 157; BP_DIAS 90; BP_DIAS 94
--- NOTE | 2019-03-05 19:06 | NUR ---
RN NOTES' ENDORSED PATIENT FOR CONTINUITY OF CARE. NOT ON ANY FORM OF DISTRESS. NO ACUTE CHANGES WITHIN THIS SHIFT. ALL NURSING NEEDS ATTENDED AND MET. CALL LIGHT WITHIN REACH. SAFETY MEASURES IN PLACE AT ALL TIMES
--- NOTE | 2019-03-05 19:44 | NUR ---
MS RN NOTES RECEIVED PT ON BED. A/OX 4. ON ROOM AIR NO RESPIRATORY DISTRESS NOTED. IV ACCESS RANDELL PICC AND RAG G18 SL PATENT AND INTACT. HEAD OF BED ELEVATED. SIDE RAILS UP. CALL LIGHT WITHIN REACH. BED ALARM ON. WILL CONT TO MONITOR PT CLOSELY.
[2019-03-05 20:00] VITALS: BP 131/81
--- NOTE | 2019-03-05 20:01 | NUR ---
MS RN NOTES RADIOLOGY CALLED. PER RADIOLOGY CTA HEART RESULTS RELAYED TO DR GANDHI
[2019-03-05] MEDS: SIMVASTATIN 20 MG TABLET PO SCH (21:23)
[2019-03-06 04:00] VITALS: BP 139/77
--- NOTE | 2019-03-06 06:35 | NUR ---
MS RN NOTES NO ACUTE CHANGES NOTED DURING THE SHIFT. PT ON CIPAP DURING SLEEPING HOURS. NO RESPIRATORY DISTRESS NOTED. WILL ENDORSE TO THE AM NURSE FOR CONTINUITY OF CARE.
--- NOTE | 2019-03-06 07:00 | NUR ---
RN OPENING NOTES RECEIVED PATIENT IN STABLE CONDITION. A/OX4, ABLE TO MAKE NEEDS KNOWN. NOT IN ANY FORM OF DISTRESS, NO SOB. DENIED PAIN OR DISCOMFORT AT THIS TIME. IV ACCESS, INTACT AND PATENT. KEPT PATIENT SAFE AND COMFROTABLE. BED IN LOW/LOCKED POSITION, SIDERAILS UPX2, CALL LIGHT IN REACH. WILL CONTINUE TO MONIOTR ACCORDINGLY.
[2019-03-06 07:37] LABS: BASOPHILS # (AUTO) 0.1 /CMM (0.0-0.2); EOSINOPHILS % (AUTO) 5.3 % (0.0-6.0); HEMATOCRIT 30 % (39-51); HEMOGLOBIN 10.2 g/dL (13.5-17.5); LYMPHOCYTES # (AUTO) 0.8 /CMM (0.8-4.8); LYMPHOCYTES % (AUTO) 10.7 % (20.0-44.0); MEAN CORPUSCULAR HGB CONC 34 g/dl (31.0-36.0); MEAN CORPUSCULAR VOLUME 99 fL (80-96); MONOCYTES # (AUTO) 1.5 /CMM (0.1-1.30); MONOCYTES % (AUTO) 18.9 % (2.0-12.0); NEUTROPHILS % (AUTO) 64.1 % (43.0-81.0); PLATELET COUNT (AUTO) 135 /CMM (150-450); RED BLOOD CELL COUNT(AUTO) 3.08 MIL/uL (4.5-6.0); WHITE BLOOD COUNT (AUTO) 7.7 K/uL (4.3-11.0)
[2019-03-06 08:00] VITALS: BP 135/87
[2019-03-06 08:12] LABS: CALCIUM, SERUM 7.9 mg/dL (8.5-10.1); CREATININE 0.9 mg/dL (0.6-1.3); MAGNESIUM 2.3 mg/dL (1.8-2.4); PHOSPHORUS 2.1 mg/dL (2.5-4.9); POTASSIUM 3.6 mmol/L (3.5-5.1)
[2019-03-06 09:03] LABS: EOSINOPHILS % (MANUAL) 1 % (0-4); LYMPHOCYTES % (MANUAL) 3 % (16-48); MONOCYTES % (MANUAL) 24 % (0-11.0); NEUTROPHILS % (MANUAL) 72 (42-76)
[2019-03-06] MEDS: CHOLECALCIFEROL 1,000 UNIT TABLET (VIT D3) PO SCH (09:09)
[2019-03-06] MEDS: CARVEDILOL 6.25 MG TABLET PO SCH (09:09)
[2019-03-06] MEDS: DOXYCYCLINE HYCLATE (100 MG) 100 MG TABLET PO SCH (09:09)
[2019-03-06] MEDS: ASPIRIN EC 81 MG TABLET.DR PO SCH (09:09)
[2019-03-06] MEDS: HYDROCORTISONE SOD SUCCINATE 100 MG/2 ML VIAL IV SCH ×2 (09:10→17:09)
[2019-03-06] MEDS: FUROSEMIDE 40 MG/4 ML VIAL IV SCH ×2 (09:10→17:06)
[2019-03-06] MEDS: SUCRALFATE 1 G TABLET PO SCH ×3 (09:16→17:06)
[2019-03-06] MEDS: MUPIROCIN OINT 2% 22 GM TUBE SCH (09:44)
[2019-03-06] MEDS: NEXIUM 40 MG VIAL IV SCH (09:44)
[2019-03-06] MEDS ORDERED: LOSARTAN POTASSIUM 50 MG TABLET PO SCH (10:00)
[2019-03-06] MEDS ORDERED: DOXY100T2 PO (10:56)
[2019-03-06] MEDS ORDERED: CARV6.252 PO (10:56)
[2019-03-06] MEDS ORDERED: LOSA50TA3 PO (10:56)
[2019-03-06] MEDS ORDERED: FURO10VI IV (10:56)
[2019-03-06] MEDS ORDERED: K PHOS NEUTRAL 250 MG TABLET PO ONE (12:30)
[2019-03-06 16:00] VITALS: BP 131/81
--- NOTE | 2019-03-06 19:09 | NUR ---
RN NOTES GAVE REPORT TO LULÚ DANIEL FROM [facility]
--- NOTE | 2019-03-06 19:20 | NUR ---
rn closing notes patient in stable condition. all needs attended and provided. all due medications given as ordered. kept patient safe and comfortable. to be dc to [facility], apple picker time 1999. bed in low/locked position, siderails upx2, call light in reach. endorsed to night rn for michael.
--- NOTE | 2019-03-06 19:34 | NUR ---
MS RN NOTE: RECEIVED PT ON BED ALERT AND ORIENTED X3. FAMILY AT BEDSIDE. NO APPARENT DISTRESS NOTED. NO COMPLAINTS OF PAIN OR DISCOMFORT AT THIS TIME. ON ROOM AIR, NO SOB NOTED. LEFT UPPER ARM PICC LINE AND RIGHT ANTECUBITAL #18 INTACT AND PATENT, FLUSHING WELL. CALL LIGHT PLACED WITHIN REACH. KEPT CLEAN, DRY AND COMFORTABLE. SAFETY AND FALL PRECAUTIONS OBSERVED AND MAINTAINED. WILL CONTINUE TO MONITOR PT
[2019-03-06 20:00] VITALS: BP 138/92
--- NOTE | 2019-03-06 21:07 | NUR ---
MS RN NOTE: PT WAS TRANSFERRED TO [facility] IN STABLE CONDITION. NO APPARENT DISTRESS NOTED. NO COMPLAINTS OF PAIN OR DISCOMFORT. NO SOB NOTED. VITAL SIGNS STABLE. LEFT UPPER ARM PICC LINE AND RIGHT ANTECUBITAL #18 INTACT AND PATENT. SKIN IS INTACT. EXIT CARE DONE. DISCHARGE INSTRUCTIONS GIVEN.
== END 2019-03-06 21:46 | disposition short-term general hospital (02) | DRG 208 ==
LOC: ER 18:24 → EDBD 20:54 → ICU 20:54 → TELE1 03-04 16:00 → MEDSG1 03-05 10:35
PROVIDERS: ADMIT Internal Medicine; ATTEND Nurse Practitioner Acute Care
PROC: 5A1945Z Respiratory Ventilation, 24-96 Consecutive Hours (ICD-10-PCS; principal; 2019-02-28)
PROC: 0BH17EZ Insertion of Endotracheal Airway into Trachea, Via Natural or Artificial Opening (ICD-10-PCS; 2019-02-28)
PROC: 02HV33Z Insertion of Infusion Device into Superior Vena Cava, Percutaneous Approach (ICD-10-PCS; 2019-03-01)
PROC: B548ZZA Ultrasonography of Superior Vena Cava, Guidance (ICD-10-PCS; 2019-03-01)
PROC: 30233N1 Transfusion of Nonautologous Red Blood Cells into Peripheral Vein, Percutaneous Approach (ICD-10-PCS; 2019-03-03)
DX: J96.01 Acute respiratory failure with hypoxia (principal); I21.4 Non-ST elevation (NSTEMI) myocardial infarction; J15.6 Pneumonia due to other Gram-negative bacteria; N17.0 Acute kidney failure with tubular necrosis; E43 Unspecified severe protein-calorie malnutrition; I50.21 Acute systolic (congestive) heart failure; R57.0 Cardiogenic shock; C90.00 Multiple myeloma not having achieved remission; E87.2 Acidosis; C79.51 Secondary malignant neoplasm of bone; I47.1 Supraventricular tachycardia; K92.2 Gastrointestinal hemorrhage, unspecified; I42.7 Cardiomyopathy due to drug and external agent; I13.0 Hypertensive heart and chronic kidney disease with heart failure and stage 1 through stage 4 chronic kidney disease, or unspecified chronic kidney disease; J96.02 Acute respiratory failure with hypercapnia; D63.8 Anemia in other chronic diseases classified elsewhere; Z79.899 Other long term (current) drug therapy; I25.10 Atherosclerotic heart disease of native coronary artery without angina pectoris; E88.09 Other disorders of plasma-protein metabolism, not elsewhere classified; Z68.22 Body mass index [BMI] 22.0-22.9, adult; D69.59 Other secondary thrombocytopenia; T45.1X5A Adverse effect of antineoplastic and immunosuppressive drugs, initial encounter; Y92.009 Unspecified place in unspecified non-institutional (private) residence as the place of occurrence of the external cause; D63.0 Anemia in neoplastic disease; D64.81 Anemia due to antineoplastic chemotherapy; Z22.322 Carrier or suspected carrier of Methicillin resistant Staphylococcus aureus; E87.6 Hypokalemia; G47.30 Sleep apnea, unspecified; E80.6 Other disorders of bilirubin metabolism; Z79.82 Long term (current) use of aspirin; Z87.891 Personal history of nicotine dependence; N18.9 Chronic kidney disease, unspecified; T50.8X5A Adverse effect of diagnostic agents, initial encounter
CPT/HCPCS: 31720; 36415; 36600; 71045-TC; 75574; 76700-TC; 80048-TC; 80053-TC; 80061-TC; 80076-TC; 81000-TC; 82272-TC; 82533; 82550-TC; 82570-TC; 82803-TC; 83735-TC; 83880; 83970; 84100-TC; 84155; 84155-TC; 84165; 84300-TC; 84443-TC; 84484-TC; 85025-TC; 85027-TC; 85396; 85730-TC; 86850-TC; 86921-TC; 87040-TC; 87081-TC; 87086-TC; 93307-TC; 94002-TC; 94003-TC; 94760-TC; 94799-TC; 97116-TC; 97530-TC; C1751; G0378; J0171; J0456; J0696; J1200; J1250; J1650; J1720; J1940; J2060; J2250; J2543; J3490; J7040; J7050; J7060; J8540; P9016-BL; Q9967